=== PATIENT | male | born 1935 | race Caucasian/White ===

== ENCOUNTER → 2020-04-01 09:12 | Outpatient (BNVA) | payer MEDICARE, OTHER, SELFPAY | PROVIDERS: Family Provider Internal Medicine; PCP Internal Medicine; Visit Provider Internal Medicine Cardiovascular Disease | DX: E78.2 Mixed hyperlipidemia (principal) | CPT/HCPCS: 80061 ==

== ENCOUNTER 2022-04-24 19:14 | Emergency (ER) | payer MEDICARE, OTHER, SELFPAY ==
[2022-04-24 19:20] VITALS: BP 139/72; PULSE 70; RESP 18; TEMP 36.6; O2SAT 98; BMI 28.7
--- NOTE | 2022-04-24 23:01 | CTR_ITS ---
PROCEDURE INFORMATION: Exam: CT Head Without Contrast Exam date and time: 04/24/2022 11:18 PM Age: 87 years old Clinical indication: Dizziness TECHNIQUE: Imaging protocol: Computed tomography of the head without contrast. Radiation optimization: All CT scans at this facility use at least one of these dose optimization techniques: automated exposure control; mA and/or kV adjustment per patient size (includes targeted exams where dose is matched to clinical indication); or iterative reconstruction. COMPARISON: No relevant prior studies available. RADIATION DOSE METRICS: Total DLP (mGy-cm): 1035.98 FINDINGS: Brain: There is mild cerebral atrophy. No significant white matter disease. Negative for intracranial hemorrhage. Negative for intracranial mass. Negative for midline shift of the brain. Negative for acute brain ischemia. Cerebral ventricles: No ventriculomegaly. Paranasal sinuses: Visualized sinuses are unremarkable. No fluid levels. Mastoid air cells: Visualized mastoid air cells are well aerated. Bones/joints: Unremarkable. No acute fracture. Soft tissues: Unremarkable. CT/CT head wo con* [id number] IMPRESSION: Negative for acute intracranial abnormality.
--- NOTE | 2022-04-24 23:09 | ED_ITS ---
Documented by User: JENNIFER Spence 04/25/22 00:22 HPI - Dizziness General: Chief Complaint: Dizziness Stated Complaint: dizzy, vomitting Time Seen by Provider: 04/24/22 23:01 History of Present Illness: HPI Narrative: 87-year-old male patient comes in tonight with complaints of nausea and dizziness starting this evening. Patient reports no headache. Patient was able to ambulate with no deficit. Patient reports feeling really sick to his stomach with the episode. Patient does have some improvement since being in the ER. Patient has a history of ASHD, hypertension, hyperlipidemia, arrhythmia, diabetes, and anemia. Associated symptoms: Reports change in hearing and nausea; Denies chest pain Review of Systems Const: Denies: fever(s) ENMT: Reports: change in hearing; Denies: throat pain Card: Denies: chest pain Resp: Denies: dyspnea GI: Reports: nausea : Denies: flank pain Musc: Reports: neck pain Skin/Breast: Denies: rash Neuro: Reports: dizziness PFSH ED PFSH: Medical History Anemia Arrhythmia ASHD (arteriosclerotic heart disease) Bradycardia Diabetes Hyperlipidemia Hypertension Osteoarthritis Surgical History History of coronary artery stent placement History of hernia repair History of knee replacement Family History Mother CAD (coronary artery disease) Stroke Father CAD (coronary artery disease) Sister Cancer Family/Other Cancer Denies family history of Diabetes Clotting disorder Dementia Chronic kidney disease (CKD) Suicide Anesthesia complication Bleeding disorder Lung disease Social History Smoking and tobacco status: never smoked Alcohol intake: never Physical Exam Const: COMMON NORMALS: alert HENMT: COMMON NORMALS: normocephalic and Normal external nose present HEAD & SCALP: normocephalic NOSE: Normal external nose present THROAT: posterior oropharynx normal Neck/C-Spine: COMMON NORMALS: full ROM Resp: COMMON NORMALS: normal respiratory effort and clear to auscultation bilaterally AUSCULTATION: clear to auscultation bilaterally Cardio: COMMON NORMALS: regular rate and regular rhythm RATE: regular rate RHYTHM: regular rhythm GI: AUSCULTATION: Yes normoactive bowel sounds Extremity: COMMON NORMALS: normal to inspection and no pedal edema Neuro: SENSORIUM/ORIENTATION: Yes alert Skin: COMMON NORMALS: turgor normal GENERAL SKIN EXAM: turgor normal Course Vital Signs: Vital signs: Vital Signs Temperature 98.4 F 04/25/22 01:03 Pulse Rate 64 04/25/22 01:03 Respiratory Rate 17 04/25/22 01:03 Blood Pressure 135/70 04/25/22 01:03 Pulse Oximetry 97 04/25/22 01:03 Oxygen Delivery Me thod 04/24/22 19:20 MDM - Dizziness Medical Decision Making Patient came in tonight with onset of dizziness with nausea. Patient denies any vomiting. Patient denies a headache. On exam abdomen soft nontender. Bowel sounds are present. Lungs are clear to auscultation. Vital signs are normal. No focal deficits are noted. Differential diagnosis includes but not limited to leg arthritis, CVA, gastroenteritis, electrolyte disturbance. CBC noted a white count of 10,000, sodium was 133, creatinine was 1.1, CT of the head showed no acute intracranial bleeding or abnormality. EKG showed a sinus rhythm with sinus arrhythmia at 66 bpm. Believe patient probably has labor arthritis. Patient was given half a liter of saline, 10 mg of dexamethasone, and 4 mg of ondansetron. Patient was able to ambulate with minimal assistance. Reviewed recommendations for further treatment and follow-up with patient and family. Family and patient both reported understanding agreed to plan. Lab Data 04/24/22 23:08 04/24/22 23:[address] 04/24/22 23:01 IMPRESSION: Negative for acute intracranial abnormality. Laboratory Results WBC 10.4 10^3/uL (4.0-10.0) H 04/24/22 23:08 RBC 3.74 10^6/uL (4.1-5.3) L 04/24/22 23:08 Hgb 12.2 g/dL (11.7-16.6) 04/24/22 23:08 Hct 36.1 % (42.0-52.0) L 04/24/22 23:08 MCV 96.5 fl (80-94) H 04/24/22 23:08 MCH 32.6 pg (28.0-34.0) 12/03/22 23:08 MCHC 33.8 g/dL (30.0-36.0) 04/24/22 23:08 RDW 12.3 % (12.1-15.1) 04/24/22 23:08 Plt Count 156 10^3/cmm (130-400) 04/24/22 23:08 MPV 10.7 fL (7.4-10.4) H 04/24/22 23:08 Neut % (Auto) 83.7 % 04/24/22 23:08 Lymph % (Auto) 11.3 % 04/24/22 23:08 [place] % (Auto) 4.1 % 04/24/22 23:08 Eos % (Auto) 0.4 % 04/24/22 23:08 Baso % (Auto) 0.3 % 04/24/22 23:08 Neut # (Auto) 8.68 10^3/uL (1.8-7.7) H 04/24/22 23:08 Lymph # (Auto) 1.2 10^3/uL (0.8-4.8) 04/24/22 23:08 [place] # (Auto) 0.4 10^3/uL (0.2-0.9) 04/24/22 23:08 Eos # (Auto) 0.0 10^3/uL (0.0-0.8) 04/24/22 23:08 Baso # (Auto) 0.0 10^3/uL (0.0-0.1) 04/24/22 23:08 Nucleated RBC % (auto) 0 % 04/24/22 23:08 Nucleated RBCs # 0.0 /100WBC 04/24/22 23:08 Sodium 133 mmol/L (136-145) L 04/24/22 23:08 Potassium 3.9 mmol/L (3.5-5.1) 04/24/22 23:08 Chloride 103 mmol/L (98-107) 04/24/22 23:08 Carbon Dioxide 20 mmol/L (22-29) L 04/24/22 23:08 Anion Gap 13.9 (5-19) 04/24/22 23:08 BUN 30 mg/dL (8-23) H 04/24/22 23:08 Creatinine 1.1 mg/dL (0.7-1.2) 04/24/22 23:08 GFR Calculation Not Reportable 04/24/22 23:08 Glucose 233 mg/dL (65-115) H 04/24/22 23:08 Calculated Osmolality 290 mOsm/kg (285-295) 04/24/22 23:08 Calcium 9.5 mg/dL (8.5-10.5) 04/24/22 23:08 Total Bilirubin 0.5 mg/dL (0.15-1.2) 04/24/22 23:08 AST 19 U/L (0-40) 04/24/22 23:08 ALT 18 U/L (0-41) 04/24/22 23:08 Alkaline Phosphatase 62 U/L (40-130) 04/24/22 23:08 Total Protein 7.6 g/dL (6.6-8.7) 04/24/22 23:08 Albumin 4.2 g/dL (3.5-5.2) 04/24/22 23:08 Globulin 3.4 g/dL (1.3-4.6) 04/24/22 23:08 Discharge Plan Discharge Patient Disposition: Home Clinical Impression: Labyrinthine dysfunction Qualifiers: Laterality: unspecified laterality Qualified Code(s): H83.2X9 - Labyrinthine dysfunction, unspecified ear Condition: Stable Prescriptions: New meclizine 12.5 mg tablet 12.5 mg PO TID PRN (Reason: dizziness or nausea) Qty: 14 0RF No Action clopidogrel 75 mg tablet 75 mg PO DAILY Qty: 90 3RF amlodipine 10 mg tablet See Rx Instructions .ROUTE .COMPLEX Qty: 90 3RF Dose Instruction: Take 1 tablet by mouth once daily Rx Instructions: Take 1 tablet by mouth once daily isosorbide mononitrate 60 mg tablet extended release 24 hr 60 mg PO DAILY PRN (Reason: blood pressure) Qty: 90 3RF losartan 100 mg tablet See Rx Instructions .ROUTE .COMPLEX Qty: 90 3RF Dose Instruction: Take 1 tablet by mouth once daily Rx Instructions: Take 1 tablet by mouth once daily metoprolol succinate 100 mg tablet extended release 24 hr See Rx Instructions .ROUTE .COMPLEX Qty: 90 3RF Dose Instruction: Take 1 tablet by mouth once daily Rx Instructions: Take 1 tablet by mouth once daily nitroglycerin 0.4 mg tablet, sublingual 0.4 mg sublingual Q5M PRN (Reason: chest pain) Qty: 30 3RF Rx Instructions: until response; do not exceed 3 doses per episode rosuvastatin 10 mg tablet 10 mg PO DAILY Qty: 90 3RF chlorthalidone 25 mg tablet 25 mg PO DAILY Qty: 90 3RF potassium chloride 8 mEq tablet extended release 8 meq PO DAILY Qty: 90 3RF Discharge Orders: Discharge ED (Routine); Ordered 04/25/22 Ordered By: Chintan Almazan Referrals: Andrea Delarosa DO [Primary Care Provider] - Discharge Diet: Usual diet Discharge Activity: Increase activity as tolerated Patient Instructions: Dizziness (ED) Activity Restrictions/Additional Instructions: Home and rest. Activity as tolerated. Use meclizine tablets 1 every 8 hours as needed for nausea or dizziness. Use a walker or supportive device to help with ambulation to keep from falling. Follow-up with primary care in 3 days for recheck. Return to emergency department for worsening symptoms such as severe headache, inability to hold fluids down, fever greater than 100.4, or inability to walk even with assistance, or new concerns. Coding Level of Care Code ED Farrowing Worker for Chg Fwd Exam Comprehensive Documented by User: Delvin Velazco DO 04/25/22 16:52 HPI - Dizziness General: Chief Complaint: Dizziness Stated Complaint: dizzy, vomitting Time Seen by Provider: 04/24/22 23:01 [facility] ED PFSH: Medical History Anemia Arrhythmia ASHD (arteriosclerotic heart disease) Bradycardia Diabetes Hyperlipidemia Hypertension Osteoarthritis Surgical History History of coronary artery stent placement History of hernia repair History of knee replacement Family History Mother CAD (coronary artery disease) Stroke Father CAD (coronary artery disease) Sister Cancer Family/Other Cancer Denies family history of Diabetes Clotting disorder Dementia Chronic kidney disease (CKD) Suicide Anesthesia complication Bleeding disorder Lung disease Social History Smoking and tobacco status: never smoked Alcohol intake: never Course Vital Signs: Vital signs: Vital Signs Temperature 98.4 F 04/25/22 01:03 Pulse Rate 64 04/25/22 01:03 Respiratory Rate 17 04/25/22 01:03 Blood Pressure 135/70 04/25/22 01:03 Pulse Oximetry 97 04/25/22 01:03 Oxygen Delivery Me thod 04/24/22 19:20 MDM - Dizziness Medical Decision Making Patient came in tonight with onset of dizziness with nausea. Patient denies any vomiting. Patient denies a headache. On exam abdomen soft nontender. Bowel sounds are present. Lungs are clear to auscultation. Vital signs are normal. No focal deficits are noted. Differential diagnosis includes but not limited to leg arthritis, CVA, gastroenteritis, electrolyte disturbance. CBC noted a white count of 10,000, sodium was 133, creatinine was 1.1, CT of the head showed no acute intracranial bleeding or abnormality. EKG showed a sinus rhythm with sinus arrhythmia at 66 bpm. Believe patient probably has labor arthritis. Patient was given half a liter of saline, 10 mg of dexamethasone, and 4 mg of ondansetron. Patient was able to ambulate with minimal assistance. Reviewed recommendations for further treatment and follow-up with patient and family. Family and patient both reported understanding agreed to plan. This patient was originally seen by JENNIFER Cotton. I agree with his history, evaluation, and treatment. Lab Data 04/24/22 23:08 04/24/22 23:[address] 04/24/22 23:01 IMPRESSION: Negative for acute intracranial abnormality. Laboratory Results WBC 10.4 10^3/uL (4.0-10.0) H 04/24/22 23:08 RBC 3.74 10^6/uL (4.1-5.3) L 04/24/22 23:08 Hgb 12.2 g/dL (11.7-16.6) 04/24/22 23:08 Hct 36.1 % (42.0-52.0) L 04/24/22 23:08 MCV 96.5 fl (80-94) H 04/24/22 23:08 MCH 32.6 pg (28.0-34.0) 04/24/22 23:08 MCHC 33.8 g/dL (30.0-36.0) 04/24/22 23:08 RDW 12.3 % (12.1-15.1) 04/24/22 23:08 Plt Count 156 10^3/cmm (130-400) 04/24/22 23:08 MPV 10.7 fL (7.4-10.4) H 04/24/22 23:08 Neut % (Auto) 83.7 % 04/24/22 23:08 Lymph % (Auto) 11.3 % 04/24/22 23:08 [place] % (Auto) 4.1 % 04/24/22 23:08 Eos % (Auto) 0.4 % 04/24/22 23:08 Baso % (Auto) 0.3 % 04/24/22 23:08 Neut # (Auto) 8.68 10^3/uL (1.8-7.7) H 04/24/22 23:08 Lymph # (Auto) 1.2 10^3/uL (0.8-4.8) 04/24/22 23:08 [place] # (Auto) 0.4 10^3/uL (0.2-0.9) 04/24/22 23:08 Eos # (Auto) 0.0 10^3/uL (0.0-0.8) 04/24/22 23:08 Baso # (Auto) 0.0 10^3/uL (0.0-0.1) 04/24/22 23:08 Nucleated RBC % (auto) 0 % 04/24/22 23:08 Nucleated RBCs # 0.0 /100WBC 04/24/22 23:08 Sodium 133 mmol/L (136-145) L 04/24/22 23:08 Potassium 3.9 mmol/L (3.5-5.1) 04/24/22 23:08 Chloride 103 mmol/L (98-107) 04/24/22 23:08 Carbon Dioxide 20 mmol/L (22-29) L 04/24/22 23:08 Anion Gap 13.9 (5-19) 04/24/22 23:08 BUN 30 mg/dL (8-23) H 04/24/22 23:08 Creatinine 1.1 mg/dL (0.7-1.2) 04/24/22 23:08 GFR Calculation Not Reportable 04/24/22 23:08 Glucose 233 mg/dL (65-115) H 04/24/22 23:08 Calculated Osmolality 290 mOsm/kg (285-295) 04/24/22 23:08 Calcium 9.5 mg/dL (8.5-10.5) 04/24/22 23:08 Total Bilirubin 0.5 mg/dL (0.15-1.2) 04/24/22 23:08 AST 19 U/L (0-40) 04/24/22 23:08 ALT 18 U/L (0-41) 04/24/22 23:08 Alkaline Phosphatase 62 U/L (40-130) 04/24/22 23:08 Total Protein 7.6 g/dL (6.6-8.7) 04/24/22 23:08 Albumin 4.2 g/dL (3.5-5.2) 04/24/22 23:08 Globulin 3.4 g/dL (1.3-4.6) 04/24/22 23:08 Discharge Plan Discharge Patient Disposition: Home Clinical Impression: Labyrinthine dysfunction Qualifiers: Laterality: unspecified laterality Qualified Code(s): H83.2X9 - Labyrinthine dysfunction, unspecified ear Condition: Stable Prescriptions: New meclizine 12.5 mg tablet 12.5 mg PO TID PRN (Reason: dizziness or nausea) Qty: 14 0RF No Action clopidogrel 75 mg tablet 75 mg PO DAILY Qty: 90 3RF amlodipine 10 mg tablet See Rx Instructions .ROUTE .COMPLEX Qty: 90 3RF Dose Instruction: Take 1 tablet by mouth once daily Rx Instructions: Take 1 tablet by mouth once daily isosorbide mononitrate 60 mg tablet extended release 24 hr 60 mg PO DAILY PRN (Reason: blood pressure) Qty: 90 3RF losartan 100 mg tablet See Rx Instructions .ROUTE .COMPLEX Qty: 90 3RF Dose Instruction: Take 1 tablet by mouth once daily Rx Instructions: Take 1 tablet by mouth once daily metoprolol succinate 100 mg tablet extended release 24 hr See Rx Instructions .ROUTE .COMPLEX Qty: 90 3RF Dose Instruction: Take 1 tablet by mouth once daily Rx Instructions: Take 1 tablet by mouth once daily nitroglycerin 0.4 mg tablet, sublingual 0.4 mg sublingual Q5M PRN (Reason: chest pain) Qty: 30 3RF Rx Instructions: until response; do not exceed 3 doses per episode rosuvastatin 10 mg tablet 10 mg PO DAILY Qty: 90 3RF chlorthalidone 25 mg tablet 25 mg PO DAILY Qty: 90 3RF potassium chloride 8 mEq tablet extended release 8 meq PO DAILY Qty: 90 3RF Discharge Orders: Discharge ED (Routine); Ordered 04/25/22 Ordered By: Chintan Almazan Referrals: Andrea Delarosa DO [Primary Care Provider] - Discharge Diet: Usual diet Discharge Activity: Increase activity as tolerated Patient Instructions: Dizziness (ED) Activity Restrictions/Additional Instructions: Home and rest. Activity as tolerated. Use meclizine tablets 1 every 8 hours as needed for nausea or dizziness. Use a walker or supportive device to help with ambulation to keep from falling. Follow-up with primary care in 3 days for recheck. Return to emergency department for worsening symptoms such as severe headache, inability to hold fluids down, fever greater than 100.4, or inability to walk even with assistance, or new concerns. Coding Level of Care Code ED Farrowing Worker for Nasrin Fwd Exam Comprehensive
[2022-04-24] MEDS: ondansetron 2 mg/ML SDV 2 mL 4 MG IVP (23:26)
[2022-04-24] MEDS: sodium chloride 0.9% 500 ML 999 ML IV (23:26)
[2022-04-24] MEDS: dexamethasone 10 mg/mL INJ IVP (23:26)
[2022-04-24 23:32] LABS: Alanine Aminotransferase 18 U/L (0-41); Albumin Level 4.2 g/dL (3.5-5.2); Alkaline Phosphatase 62 U/L (40-130); Anion Gap 13.9 (5-19); Aspartate Amino Transferase 19 U/L (0-40); Basophils % 0.3 %; Blood Urea Nitrogen 30 mg/dL (8-23); Calcium 9.5 mg/dL (8.5-10.5); Carbon Dioxide 20 mmol/L (22-29); Chloride 103 mmol/L (98-107); Eosinophils % 0.4 %; Globulin 3.4 g/dL (1.3-4.6); Glucose 233 mg/dL (65-115); Hematocrit 36.1 % (42.0-52.0); Hemoglobin 12.2 g/dL (11.7-16.6); Lymphocytes # 1.2 10^3/uL (0.8-4.8); Lymphocytes % 11.3 %; Mean Corpuscular HGB Conc 33.8 g/dL (30.0-36.0); Mean Corpuscular Hemoglobin 32.6 pg (28.0-34.0); Mean Corpuscular Volume 96.5 fl (80-94); Mean Platelet Volume 10.7 fL (7.4-10.4); Monocytes # 0.4 10^3/uL (0.2-0.9); Monocytes % 4.1 %; Neutrophils # 8.68 10^3/uL (1.8-7.7); Neutrophils % 83.7 %; Nucleated Red Blood Cells % 0 %; Osmolality Calculated 290 mOsm/kg (285-295); Platelet Count 156 10^3/cmm (130-400); Potassium 3.9 mmol/L (3.5-5.1); Red Blood Count 3.74 10^6/uL (4.1-5.3); Red Cell Distribution Width 12.3 % (12.1-15.1); Sodium 133 mmol/L (136-145); Total Bilirubin 0.5 mg/dL (0.15-1.2); Total Protein 7.6 g/dL (6.6-8.7); White Blood Count 10.4 10^3/uL (4.0-10.0)
[2022-04-25 01:03] VITALS: BP 135/70; PULSE 64; RESP 17; TEMP 36.9; O2SAT 97
== END 2022-04-25 01:03 | disposition home or self-care (01) ==
PROVIDERS: Emergency Provider Nurse Practitioner Family; PCP Internal Medicine
DX: H83.2X9 Labyrinthine dysfunction, unspecified ear (principal)
CPT/HCPCS: 70450; 80053; 85025; 96361; 96374; 96375; 99285; J1100; J2405; J7040

== ENCOUNTER 2022-04-28 12:04 | Emergency (ER) | payer MEDICARE, OTHER, SELFPAY ==
[2022-04-28 12:42] VITALS: BP 152/74; PULSE 77; TEMP 36.8; O2SAT 98; BMI 29.0
--- NOTE | 2022-04-28 12:46 | ECG_ITS ---
[facility] Test Date: 2022-04-28 Pat Name: Rowdy Najera Department: Room: Gender: Male Tooling Specialist: : [id number] Requested By: Mckinley King Order Number: [id number] Jake MD: Pedro Mariano M.D. Measurements Intervals [place] Rate: 75 P: 88 ND: 207 QRS: -4 QRSD: 89 T: 27 QT: 376 QTc: 420 Interpretive Statements SINUS RHYTHM INTERPRETATION BASED ON A DEFAULT AGE OF 40 YEARS Compared to ECG 07/15/2017 16:30:13 No significant changes Electronically Signed On 04-28-2022 16:16:48 PRINCIPAL SECURITY ARCHITECT by Pedro Mariano M.D. [id number] f
[2022-04-28 13:27] LABS: Add Urine Microscopic? NO; Charge for UA Resulting for Rev
[2022-04-28 13:34] LABS: Bilirubin Urine Neg (Negative); Blood Urine Neg (Negative); Glucose Urine UA 2+ (Normal); Ketones Urine Negative (Negative); Leukocyte Esterase Urine Negative (Negative); Nitrate Urine Negative (Negative); Protein Urine Neg (Negative); Urine Appearance Clear (CLEAR); Urine Color Yellow (Yellow); Urobilinogen Urine Neg (Negative); pH Urine 5 (5-7)
[2022-04-28 14:24] VITALS: BP 137/73; PULSE 82; TEMP 37.2; O2SAT 97
[2022-04-28 14:31] LABS: Basophils % 0.2 %; Eosinophils # 0.1 10^3/uL (0.0-0.8); Eosinophils % 0.5 %; Hematocrit 37.1 % (42.0-52.0); Hemoglobin 12.5 g/dL (11.7-16.6); Lymphocytes % 7.6 %; Mean Corpuscular HGB Conc 33.7 g/dL (30.0-36.0); Mean Corpuscular Hemoglobin 32.8 pg (28.0-34.0); Mean Corpuscular Volume 97.4 fl (80-94); Mean Platelet Volume 10.5 fL (7.4-10.4); Monocytes # 0.9 10^3/uL (0.2-0.9); Monocytes % 7.3 %; Neutrophils # 10.62 10^3/uL (1.8-7.7); Neutrophils % 83.9 %; Nucleated Red Blood Cells % 0 %; Platelet Count 162 10^3/cmm (130-400); Red Blood Count 3.81 10^6/uL (4.1-5.3); Red Cell Distribution Width 12.3 % (12.1-15.1); White Blood Count 12.6 10^3/uL (4.0-10.0)
[2022-04-28 14:55] LABS: Troponin(5th) Baseline 24 ng/L (0-15)
[2022-04-28 15:05] LABS: Alanine Aminotransferase 29 U/L (0-41); Albumin Level 4.2 g/dL (3.5-5.2); Alkaline Phosphatase 60 U/L (40-130); Anion Gap 14.1 (5-19); Aspartate Amino Transferase 22 U/L (0-40); Blood Urea Nitrogen 22 mg/dL (8-23); Calcium 9.1 mg/dL (8.5-10.5); Carbon Dioxide 21 mmol/L (22-29); Chloride 106 mmol/L (98-107); Globulin 3.3 g/dL (1.3-4.6); Glucose 234 mg/dL (65-115); NT Pro B Type Natriuretic Pept 192 pg/mL (0-450); Osmolality Calculated 295 mOsm/kg (285-295); Potassium 4.1 mmol/L (3.5-5.1); Sodium 137 mmol/L (136-145); Total Protein 7.5 g/dL (6.6-8.7)
--- NOTE | 2022-04-28 15:28 | ECG_ITS ---
[facility] Test Date: 2022-04-28 Pat Name: Rowdy Najera Department: Room: Gender: Male Warehouse Picker: : [id number] Requested By: Mckniley King Order Number: [id number] Jake MD: Pedro Mariano M.D. Measurements Intervals [place] Rate: 75 P: 32 ND: 203 QRS: 12 QRSD: 88 T: 30 QT: 386 QTc: 431 Interpretive Statements SINUS RHYTHM Compared to ECG 04/28/2022 12:46:57 No significant changes Electronically Signed On 04-28-2022 16:19:12 BLUEPRINT ENGINEER by Pedro Mariano M.D. [email or web address] medical [email or web address] [id number]
[2022-04-28 15:49] VITALS: BP 152/74; PULSE 94; O2SAT 97
--- NOTE | 2022-04-28 16:44 | XRR_ITS ---
PROCEDURE INFORMATION: Exam: XR Chest Exam date and time: 04/28/2022 4:49 PM Age: 87 years old Clinical indication: Cough and dyspnea; Additional info: Dyspnea/cough TECHNIQUE: Imaging protocol: Radiologic exam of the chest. Views: 1 view. COMPARISON: CR XR chest 2V* [id number] 07/18/2017 9:15 PM FINDINGS: Lungs: Unremarkable. No consolidation. Pleural spaces: Unremarkable. No pleural effusion. No pneumothorax. Heart/Mediastinum: Unremarkable. No cardiomegaly. Bones/joints: Unremarkable. XR/XR chest 1V portable [id number] IMPRESSION: No acute findings.
--- NOTE | 2022-04-28 16:55 | W.ED.CHESTPA ---
HPI - Chest Pain General: Chief Complaint: Chest Pain Stated Complaint: Chest pains, N/V Time Seen by Provider: 04/28/22 16:39 Source: patient History of Present Illness: 87-year-old male presents emergency room complaining of intermittent nausea and vomiting some chest discomfort that radiates into his right shoulder. He has had generalized myalgias and some nonproductive cough. Subjective fever. No vomiting or diarrhea but has been very nauseous. In the emergency room he is a low-grade temp of 99 even. His cough has been nonproductive. MD complaint: chest discomfort Onset (ago): hour(s) Timing of current episode: episodic Onset: during rest Pain location: substernal Pain radiation: right shoulder Severity: mild Quality: aching and heaviness Relieving factors: nothing Exacerbating factors: nothing Associated symptoms: Reports dyspnea, fever(s) and nausea; Deny abdominal pain, diaphoresis, leg edema, palpitations, sense of impending doom, syncope or vomiting Treatment prior to arrival: none Review of Systems Const: Reports: fever(s); Denies: chills, fatigue, malaise or diaphoresis ENMT: Denies: throat pain, ear or mastoid pain, nasal discharge or nasal congestion Card: Reports: chest pain; Denies: palpitations, irregular heart rhythm, edema, swelling of feet/ankles or syncope Resp: Reports: dyspnea and non-productive cough; Denies: productive cough GI: Reports: nausea; Denies: abdominal pain or vomiting : Denies: flank pain, dysuria, urinary frequency or urinary urgency Musc: Denies: neck pain or back pain Skin/Breast: Denies: rash or pruritus PFS ED PFSH: Medical History Anemia Arrhythmia ASHD (arteriosclerotic heart disease) Bradycardia Diabetes Hyperlipidemia Hypertension Osteoarthritis Surgical History History of coronary artery stent placement History of hernia repair History of knee replacement Family History Mother CAD (coronary artery disease) Stroke Father CAD (coronary artery disease) Sister Cancer Family/Other Cancer Denies family history of Diabetes Clotting disorder Dementia Chronic kidney disease (CKD) Suicide Anesthesia complication Bleeding disorder Lung disease Social History Smoking and tobacco status: never smoked Alcohol intake: never Physical Exam Const: GENERAL APPEARANCE: cooperative and comfortable ORIENTATION/CONSCIOUSNESS: Yes awake, Yes oriented to person, Yes oriented to place and Yes oriented to time HENMT: COMMON NORMALS: normocephalic, atraumatic and hearing grossly normal bilaterally HEAD & SCALP: normocephalic and atraumatic Resp: COMMON NORMALS: normal respiratory effort, No retractions, No use of accessory muscles and clear to auscultation bilaterally AUSCULTATION: clear to auscultation bilaterally Cardio: COMMON NORMALS: regular rate, regular rhythm and No murmurs present (Cardio) RATE: regular rate RHYTHM: regular rhythm GI: COMMON NORMALS: Soft to palpation and No hepatosplenomegaly present AUSCULTATION: Yes normoactive bowel sounds PALPATION: Yes Soft to palpation, No Tenderness to palpation present (GI), No Guarding due to palpation present (GI) and Yes No hepatosplenomegaly present Extremity: COMMON NORMALS: normal to inspection, capillary refill normal, no clubbing, cyanosis or edema, no calf tenderness and no pedal edema Neuro: SENSORIUM/ORIENTATION: Yes oriented to person, Yes oriented to place and Yes oriented to time Skin: COMMON NORMALS: no rashes or lesions noted GENERAL SKIN EXAM: no rashes or lesions noted Course Vital Signs: Vital signs: Vital Signs Temperature 99.0 F 04/28/22 14:24 Pulse Rate 72 04/28/22 18:02 Respiratory Rate 15 04/28/22 18:02 Blood Pressure 128/64 04/28/22 18:02 Pulse Oximetry 96 04/28/22 18:02 Oxygen Delivery Me thod 04/28/22 14:24 MDM - Chest Pain Medical Decision Making EKG does not show any acute changes. Flulike illness for several days. I suspect he does have influenza he is outside the timeframe for use of antivirals. His flu swabs are negative he may have already converted back on his swabs. Serial troponins are negative. Noncardiac like chest discomfort related to his upper respiratory symptoms. Return if is further problems. Medical Records I reviewed the patient's medical records. Lab Data I reviewed the patient's lab results. 04/28/22 14:14 04/28/22 14:14 Radiology Impressions Chest X-Ray 04/28/22 16:44 IMPRESSION: No acute findings. Laboratory Results WBC 12.6 10^3/uL (4.0-10.0) H 04/28/22 14:14 RBC 3.81 10^6/uL (4.1-5.3) L 04/28/22 14:14 Hgb 12.5 g/dL (11.7-16.6) 04/28/22 14:14 Hct 37.1 % (42.0-52.0) L 04/28/22 14:14 MCV 97.4 fl (80-94) H 04/28/22 14:14 MCH 32.8 pg (28.0-34.0) 04/28/22 14:14 MCHC 33.7 g/dL (30.0-36.0) 04/28/22 14:14 RDW 12.3 % (12.1-15.1) 04/28/22 14:14 Plt Count 162 10^3/cmm (130-400) 04/28/22 14:14 MPV 10.5 fL (7.4-10.4) H 04/28/22 14:14 Neut % (Auto) 83.9 % 04/28/22 14:14 Lymph % (Auto) 7.6 % 04/28/22 14:14 [place] % (Auto) 7.3 % 04/28/22 14:14 Eos % (Auto) 0.5 % 04/28/22 14:14 Baso % (Auto) 0.2 % 04/28/22 14:14 Neut # (Auto) 10.62 10^3/uL (1.8-7.7) H 04/28/22 14:14 Lymph # (Auto) 1.0 10^3/uL (0.8-4.8) 04/28/22 14:14 [place] # (Auto) 0.9 10^3/uL (0.2-0.9) 04/28/22 14:14 Eos # (Auto) 0.1 10^3/uL (0.0-0.8) 04/28/22 14:14 Baso # (Auto) 0.0 10^3/uL (0.0-0.1) 04/28/22 14:14 Nucleated RBC % (auto) 0 % 04/28/22 14:14 Nucleated RBCs # 0.0 /100WBC 04/28/22 14:14 Sodium 137 mmol/L (136-145) 04/28/22 14:14 Potassium 4.1 mmol/L (3.5-5.1) 04/28/22 14:14 Chloride 106 mmol/L (98-107) 04/28/22 14:14 Carbon Dioxide 21 mmol/L (22-29) L 04/28/22 14:14 Anion Gap 14.1 (5-19) 04/28/22 14:14 BUN 22 mg/dL (8-23) 04/28/22 14:14 Creatinine 1.1 mg/dL (0.7-1.2) 04/28/22 14:14 GFR Calculation Not Reportable 04/28/22 14:14 Glucose 234 mg/dL (65-115) H 04/28/22 14:14 Calculated Osmolality 295 mOsm/kg (285-295) 04/28/22 14:14 Calcium 9.1 mg/dL (8.5-10.5) 04/28/22 14:14 Total Bilirubin 1.0 mg/dL (0.15-1.2) 04/28/22 14:14 AST 22 U/L (0-40) 04/28/22 14:14 ALT 29 U/L (0-41) 04/28/22 14:14 Alkaline Phosphatase 60 U/L (40-130) 04/28/22 14:14 Troponin T Baseline 24 ng/L (0-15) H 04/28/22 14:14 Troponin T 120 Minute 25.61 ng/L (0-15) H 04/28/22 16:21 Delta Troponin T 1.61 ABS# (0-10) 04/28/22 16:21 NT-Pro-B Natriuret Pep 192 pg/mL (0-450) 04/28/22 14:14 NT-Pro-B Natriuret Pep 193 pg/mL (0-450) 04/28/22 14:14 Total Protein 7.5 g/dL (6.6-8.7) 04/28/22 14:14 Albumin 4.2 g/dL (3.5-5.2) 04/28/22 14:14 Globulin 3.3 g/dL (1.3-4.6) 04/28/22 14:14 Urine Color Yellow (Yellow) 04/28/22 13:20 Urine Appearance Clear (CLEAR) 04/28/22 13:20 Urine pH 5 (5-7) 04/28/22 13:20 Ur Specific [place] 1.020 (1.005-1.030) 04/28/22 13:20 Urine Protein Neg (Negative) 04/28/22 13:20 Urine Glucose (UA) 2+ (Normal) H 04/28/22 13:20 Urine Ketones Negative (Negative) 04/28/22 13:20 Urine Blood Neg (Negative) 04/28/22 13:20 Urine Nitrate Negative (Negative) 04/28/22 13:20 Urine Bilirubin Neg (Negative) 04/28/22 13:20 Urine Urobilinogen Neg mg/dL (Negative) 04/28/22 13:20 Ur Leukocyte Esterase Negative (Negative) 04/28/22 13:20 Influenza Type A Ag negative (Negative) 04/28/22 17:34 Influenza Type B Ag negative (Negative) 04/28/22 17:34 Discharge Plan Discharge Patient Disposition: Home Clinical Impression: Atypical chest pain, Viral URI with cough Condition: Stable Prescriptions: No Action nitroglycerin 0.4 mg tablet, sublingual 0.4 mg sublingual Q5M PRN (Reason: chest pain) Qty: 30 3RF Rx Instructions: until response; do not exceed 3 doses per episode chlorthalidone 25 mg tablet 25 mg PO DAILY Qty: 90 3RF potassium chloride 8 mEq tablet extended release 8 meq PO DAILY Qty: 90 3RF triamcinolone acetonide 0.1 % ointment 1 applic TOPICAL BID PRN (Reason: Rash) ondansetron 4 mg tablet,disintegrating 4 mg PO Q4H PRN (Reason: Nausea) Prevagen 1 caplet PO DAILY metoprolol succinate 100 mg tablet extended release 24 hr 100 mg PO DAILY clopidogrel 75 mg tablet 75 mg PO QPM isosorbide mononitrate 60 mg tablet extended release 24 hr 60 mg PO DAILY amlodipine 10 mg tablet 10 mg PO DAILY losartan 100 mg tablet 100 mg PO QPM rosuvastatin 10 mg tablet 10 mg PO QPM Tylenol 325 mg Capsule 325 mg PO QID PRN (Reason: Pain) Discharge Orders: Discharge ED (Routine); Ordered 12/07/22 Ordered By: Mckinley Hunt Referrals: Andrea Delarosa DO [Primary Care Provider] - Discharge Diet: Usual diet Discharge Activity: Increase activity as tolerated Patient Instructions: Opioid Safety, Pain Management Activity Restrictions/Additional Instructions: You are seen for flulike symptoms in the emergency room. Your heart enzymes and EKGs were unremarkable. Based on your presentation is felt to most likely do have influenza given your report of the onset of symptoms you are not a candidate for Tamiflu. Recommend supportive cares Tylenol and ibuprofen [id number] cough cold remedies as appropriate for your symptoms. Coding Level of Care Code ED Lead Clinical Research Coordinator for Chg Fwd Exam Detailed
[2022-04-28 17:00] VITALS: BP 117/65; PULSE 79; RESP 16; O2SAT 99
--- NOTE | 2022-04-28 17:01 | PC.NURSE ---
PT PLACED ON CONTINUOUS NIBP, SPO2, AND CM
[2022-04-28 17:03] LABS: Troponin 5 2HR 25.61 ng/L (0-15)
[2022-04-28 17:05] LABS: Troponin 5 2HR Delta 1.61 ABS# (0-10)
[2022-04-28 17:35] LABS: NT Pro B Type Natriuretic Pept 193 pg/mL (0-450)
[2022-04-28 17:56] VITALS: BP 128/64; PULSE 74; RESP 21; O2SAT 96
[2022-04-28 18:02] VITALS: BP 128/64; PULSE 72; RESP 15; O2SAT 96
[2022-04-28 18:22] LABS: Influenza A by IFA negative (Negative); Influenza B by IFA negative (Negative)
== END 2022-04-28 18:03 | disposition home or self-care (01) ==
PROVIDERS: Emergency Provider Family Medicine; PCP Internal Medicine
DX: R07.89 Other chest pain (principal); J06.9 Acute upper respiratory infection, unspecified; Z79.02 Long term (current) use of antithrombotics/antiplatelets
CPT/HCPCS: 36415; 71045; 80053; 81003; 83880; 84484; 85025; 87804; 93005; 99285

== ENCOUNTER → 2022-05-19 10:00 | Outpatient (BNVA) | payer MEDICARE, OTHER, SELFPAY | PROVIDERS: PCP Internal Medicine; Visit Provider Internal Medicine Cardiovascular Disease | DX: I25.10 Atherosclerotic heart disease of native coronary artery without angina pectoris (principal); I10 Essential (primary) hypertension; E78.2 Mixed hyperlipidemia; I49.3 Ventricular premature depolarization; E11.65 Type 2 diabetes mellitus with hyperglycemia | CPT/HCPCS: 99214 ==

== ENCOUNTER → 2022-11-24 09:28 | Outpatient (BNVA) | payer MEDICARE, OTHER, SELFPAY | PROVIDERS: PCP Internal Medicine; Visit Provider Internal Medicine Cardiovascular Disease | DX: I25.10 Atherosclerotic heart disease of native coronary artery without angina pectoris (principal); I10 Essential (primary) hypertension; E78.2 Mixed hyperlipidemia; I49.3 Ventricular premature depolarization; E11.65 Type 2 diabetes mellitus with hyperglycemia; D50.8 Other iron deficiency anemias; R06.02 Shortness of breath; Z79.01 Long term (current) use of anticoagulants | CPT/HCPCS: 80048; 99214 ==

== ENCOUNTER 2023-02-24 03:20 | Observation (INO) | payer MEDICARE, OTHER, SELFPAY ==
[2023-02-24] VITALS (34 sets, daily range): BP systolic 105–175; BP diastolic 53–85; PULSE 69–96; RESP 16–33; TEMP 36.9–37.4; O2SAT 92–98; BMI 23.2
--- NOTE | 2023-02-24 03:24 | XRR_ITS ---
PROCEDURE INFORMATION: Exam: XR Chest Exam date and time: 02/24/2023 3:37 AM Age: 88 years old Clinical indication: Chest wall pain; Additional info: Cp TECHNIQUE: Imaging protocol: Radiologic exam of the chest. Views: 1 view. COMPARISON: CR XR chest 1V portable [id number] 04/28/2022 4:49 PM FINDINGS: Lungs: No focal airspace disease. Pleural spaces: Unremarkable. No pleural effusion. No pneumothorax. Heart/Mediastinum: Cardiomediastinal silhouette is within normal limits. Probable small hiatal hernia. Bones/joints: Unremarkable. XR/XR chest 1V portable [id number] IMPRESSION: No acute cardiopulmonary abnormality.
--- NOTE | 2023-02-24 03:24 | ECG_ITS ---
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 Measurements Intervals [place] Rate: 99 P: 36 ID: [id number] QRS: 18 QRSD: 85 T: 31 QT: 324 QTc: 417 Interpretive Statements SINUS RHYTHM Compared to ECG 04/28/2022 15:28:34 No significant changes Electronically Signed On 02-24-2023 15:55:16 CDT by Pedro Mariano M.D. [email or web address].[employer]/store/NU/[id number] f
--- NOTE | 2023-02-24 03:30 | ED_ITS ---
HPI - Chest Pain General: Chief Complaint: Chest Pain Stated Complaint: chest pain Time Seen by Provider: 02/24/23 03:21 Source: patient and EMS Mode of arrival: EMS Limitations: no limitations History of Present Illness: 88-year-old male states has been having chest pains almost some nausea vomiting and chills states been on for 4 to 5 hours he did have 1 episode of vomiting. States that the pain is since resolved ask him how to describe the pain he states he cannot history is kind of difficult from patient he denies any shortness of breath denies any cough he does have a history of stent many years ago. Associated symptoms: Reports nausea and vomiting; Deny abdominal pain, dyspnea or fever(s) Review of Systems Const: Denies: fever(s) or chills Eyes: Denies: eye discomfort ENMT: Denies: throat pain or dental pain Card: Reports: chest pain Resp: Denies: dyspnea GI: Reports: nausea and vomiting; Denies: abdominal pain or diarrhea : Denies: dysuria Musc: Denies: neck pain or back pain Skin/Breast: Denies: rash Neuro: Denies: headache(s) PFSH ED PFSH: Medical History Anemia Arrhythmia ASHD (arteriosclerotic heart disease) Bradycardia Diabetes Hyperlipidemia Hypertension Osteoarthritis Surgical History History of coronary artery stent placement History of hernia repair History of knee replacement Family History Mother CAD (coronary artery disease) Stroke Father CAD (coronary artery disease) Sister Cancer Family/Other Cancer Denies family history of Diabetes Clotting disorder Dementia Chronic kidney disease (CKD) Suicide Anesthesia complication Bleeding disorder Lung disease Social History Smoking and tobacco status: never smoked Alcohol intake: never Substance/Drug Use: never Physical Exam Const: COMMON NORMALS: patient oriented x3 HENMT: COMMON NORMALS: normocephalic and atraumatic HEAD & SCALP: normocephalic and atraumatic Eye: COMMON NORMALS: Equal, round and reactive pupils present and EOMs intact bilaterally PUPIL: Yes Equal, round and reactive pupils present Neck/C-Spine: COMMON NORMALS: full ROM and supple Chest: COMMONS NORMALS: normal inspection of the chest and normal palpation of entire chest wall Resp: COMMON NORMALS: normal respiratory effort, No retractions, No use of accessory muscles and clear to auscultation bilaterally AUSCULTATION: clear to auscultation bilaterally Cardio: COMMON NORMALS: regular rate, regular rhythm and No murmurs present (Cardio) RATE: regular rate RHYTHM: regular rhythm GI: COMMON NORMALS: Normal to inspection, nondistended, normoactive bowel sounds present, Soft to palpation, non-tender and no masses PALPATION: Yes Soft to palpation Extremity: COMMON NORMALS: normal to inspection and full ROM Neuro: COMMON NORMALS: patient oriented x3, moves all extremities and no focal motor deficits Psych: COMMON NORMALS: mental status grossly normal, Normal thought process present and cooperative THOUGHT PROCESS: Normal thought process present Skin: COMMON NORMALS: no rashes or lesions noted and no wounds GENERAL SKIN EXAM: no rashes or lesions noted Course Vital Signs: Vital signs: Vital Signs Temperature 98.4 F 02/24/23 16:00 Pulse Rate 69 02/24/23 16:46 Respiratory Rate 23 H 02/24/23 16:46 Blood Pressure 112/65 02/24/23 16:46 Pulse Oximetry 97 02/24/23 16:46 Oxygen Delivery Me thod Room Air 02/24/23 11:26 MDM - Chest Pain Medical Decision Making Patient presents here with chest pain he does have a positive delta troponin CT scan showed no acute findings I spoke to the hospitalist will admit at this time for ACS rule out Medical Records I reviewed the patient's medical records. Lab Data I reviewed the patient's lab results. 02/24/23 03:10 02/24/23 03:51 Radiology Impressions Chest X-Ray 02/24/23 03:24 IMPRESSION: No acute cardiopulmonary abnormality. Chest/Abdomen/Pelvis CT 02/24/23 03:58 IMPRESSION: 1. No pulmonary emboli identified to the level of the proximal segmental vessels. 2. There is mural thickening of the lower esophagus, which may reflect esophagitis, though endoscopy could be performed to exclude underlying neoplasm, particularly given some mildly prominent adjacent lymph nodes. IMPRESSION: No acute findings. Laboratory Results WBC 11.54 10^3/uL (3.29-11.43) H 02/24/23 03:10 RBC 3.78 10^6/uL (3.85-5.65) L 02/24/23 03:10 Hgb 12.40 g/dL (11.27-16.99) 02/24/23 03:10 Hct 36.3 % (37-53) L 02/24/23 03:10 MCV 96.0 fl (82-101) 02/24/23 03:10 MCH 32.8 pg (27-33) 02/24/23 03:10 MCHC 34.2 g/dL (30-55) 02/24/23 03:10 RDW 13.0 % (12.1-15.1) 02/24/23 03:10 Plt Count 200 10^3/cmm (157-399) 02/24/23 03:10 MPV 10.9 fL (7.4-10.4) H 02/24/23 03:10 Neut % (Auto) 79.6 % 02/24/23 03:10 Lymph % (Auto) 16.1 % 02/24/23 03:10 [place] % (Auto) 3.1 % 02/24/23 03:10 Eos % (Auto) 0.6 % 02/24/23 03:10 Baso % (Auto) 0.3 % 02/24/23 03:10 Neut # (Auto) 9.18 10^3/uL (1.8-7.7) H 02/24/23 03:10 Lymph # (Auto) 1.9 10^3/uL (0.8-4.8) 02/24/23 03:10 [place] # (Auto) 0.4 10^3/uL (0.2-0.9) 02/24/23 03:10 Eos # (Auto) 0.1 10^3/uL (0.0-0.8) 02/24/23 03:10 Baso # (Auto) 0.0 10^3/uL (0.0-0.1) 02/24/23 03:10 Nucleated RBC % (auto) 0 % 02/24/23 03:10 Nucleated RBCs # 0.0 /100WBC 02/24/23 03:10 PT 13.30 SECONDS (12.1-14.9) 02/24/23 03:51 INR 0.98 (0.8-1.2) 02/24/23 03:51 Sodium 138 mmol/L (136-145) 02/24/23 03:51 Potassium 4.0 mmol/L (3.5-5.1) 02/24/23 03:51 Chloride 108 mmol/L (98-107) H 02/24/23 03:51 Carbon Dioxide 18 mmol/L (22-29) L 02/24/23 03:51 Anion Gap 16.0 (5-19) 02/24/23 03:51 BUN 28 mg/dL (8-23) H 02/24/23 03:51 Creatinine 1.1 mg/dL (0.7-1.2) 02/24/23 03:51 GFR Calculation Not Reportable 02/24/23 03:51 Glucose 237 mg/dL (65-115) H 02/24/23 03:51 Estimat Average Glucose 157 02/24/23 03:51 Hemoglobin A1c 7.1 % (4.0-6.0) H 02/24/23 03:51 Calculated Osmolality 299 mOsm/kg (285-295) H 02/24/23 03:51 Calcium 8.4 mg/dL (8.5-10.5) L 02/24/23 03:51 Total Bilirubin 0.5 mg/dL (0.15-1.2) 02/24/23 03:51 AST 14 U/L (0-40) 02/24/23 03:51 ALT 14 U/L (0-41) 02/24/23 03:51 Alkaline Phosphatase 74 U/L (40-130) 02/24/23 03:51 Troponin T Baseline 23 ng/L (0-15) H 02/24/23 03:51 Troponin T 120 Minute 36.42 ng/L (0-15) H 02/24/23 05:20 Delta Troponin T 13.42 ABS# (0-10) H* 02/24/23 05:20 C-Reactive Protein 3.7 mg/L (0.0-4.9) 02/24/23 03:51 NT-Pro-B Natriuret Pep 426 pg/mL (0-450) 02/24/23 03:51 Total Protein 6.7 g/dL (6.6-8.7) 02/24/23 03:51 Albumin 4.2 g/dL (3.5-5.2) 02/24/23 03:51 Globulin 2.5 g/dL (1.3-4.6) 02/24/23 03:51 Triglycerides 118 mg/dL (0-150) 02/24/23 03:51 Cholesterol 131 mg/dL (0-200) 02/24/23 03:51 LDL Cholesterol, Calc 63 mg/dL (50-129) 02/24/23 03:51 HDL Cholesterol 44 mg/dL (60-100) L 02/24/23 03:51 LDL/HDL Ratio 1.43 RATIO (0.00-3.22) 02/24/23 03:51 Cholesterol/HDL Ratio 2.98 mg/dL (1.0-5.00) 02/24/23 03:51 Lipase 66 U/L (13-60) H 02/24/23 03:51 Procalcitonin 0.39 ng/mL (0-0.5) 02/24/23 03:51 TSH 1.88 uIU/mL (0.27-4.20) 02/24/23 03:51 SARS-CoV-2 Ag (Rapid) negative (Negative) 02/24/23 03:36 All radiology interpretation(s) finalized by discharge EKG Data EKG 1: I personally reviewed and interpreted this EKG as follows: EKG interpretation date: 02/24/23 EKG interpretation time: 03:21 Interpretation: nsr hr [address] or t wave abnormalities qrs 85 qtc 381 Discharge Plan Discharge Patient Disposition: Admitted As Inpatient Admit Provider: Cyaden Sam Clinical Impression: NSTEMI (non-ST elevated myocardial infarction) Condition: Stable Coding Level of Care Code ED Operator Specialist Communications for Chg Willem
[2023-02-24 03:33] LABS: Basophils % 0.3 %; Eosinophils # 0.1 10^3/uL (0.0-0.8); Eosinophils % 0.6 %; Hematocrit 36.3 % (37-53); Lymphocytes # 1.9 10^3/uL (0.8-4.8); Lymphocytes % 16.1 %; Mean Corpuscular HGB Conc 34.2 g/dL (30-55); Mean Corpuscular Hemoglobin 32.8 pg (27-33); Mean Platelet Volume 10.9 fL (7.4-10.4); Monocytes # 0.4 10^3/uL (0.2-0.9); Monocytes % 3.1 %; Neutrophils # 9.18 10^3/uL (1.8-7.7); Neutrophils % 79.6 %; Nucleated Red Blood Cells % 0 %; Platelet Count 200 10^3/cmm (157-399); Red Blood Count 3.78 10^6/uL (3.85-5.65); White Blood Count 11.54 10^3/uL (3.29-11.43)
--- NOTE | 2023-02-24 03:58 | CTR_ITS ---
PROCEDURE INFORMATION: Exam: CTA Chest With Contrast Exam date and time: 02/24/2023 4:43 AM Age: 88 years old Clinical indication: Chest wall pain; Patient HX: PT with vomiting and diarrhea since yesterday, woke up with some chest pain today; Additional info: Cp vomiting TECHNIQUE: Imaging protocol: Computed tomographic angiography of the chest with contrast. Exam focused on the arteries. 3D rendering (Not supervised by radiologist): MIP and/or 3D reconstructed images were created by the technologist. Radiation optimization: All CT scans at this facility use at least one of these dose optimization techniques: automated exposure control; mA and/or kV adjustment per patient size (includes targeted exams where dose is matched to clinical indication); or iterative reconstruction. Contrast material: OMNI 350; Contrast volume: 100 ml; Contrast route: INTRAVENOUS (IV); REPORTING DATA: Count of CT and Cardiac NM exams in prior 12 months: This patient has received [address] and 0 known cardiac nuclear medicine studies in the 12 months prior to the current study. COMPARISON: CR (CHEST, ) 02/24/2023 3:37 AM RADIATION DOSE METRICS: Total DLP (mGy-cm): 1037.9 FINDINGS: Pulmonary arteries: No pulmonary emboli identified to the level of the proximal segmental vessels. Aorta: Unremarkable. No aortic aneurysm. No aortic dissection. Lungs: There appears to be an area of mucus plugging in the right lower lobe. No focal airspace consolidation. Pleural spaces: Unremarkable. No pneumothorax. No pleural effusion. Heart: Unremarkable. No cardiomegaly. No pericardial effusion. Mediastinal space: There is mural thickening of the lower esophagus. Lymph nodes: There is some mildly prominent hilar lymphoid tissue. Mildly prominent paraesophageal lymph nodes are seen measuring up to 1 cm. Diaphragm: Small hiatal hernia. Bones/joints: Unremarkable. No acute fracture. Soft tissues: Unremarkable. PROCEDURE INFORMATION: Exam: CT Abdomen And Pelvis With Contrast Exam date and time: 02/24/2023 4:43 AM Age: 88 years old Clinical indication: Chest wall pain; Patient HX: PT with vomiting and diarrhea since yesterday, woke up with some chest pain today; Additional info: Cp vomiting TECHNIQUE: Imaging protocol: Computed tomography of the abdomen and pelvis with contrast. Radiation optimization: All CT scans at this facility use at least one of these dose optimization techniques: automated exposure control; mA and/or kV adjustment per patient size (includes targeted exams where dose is matched to clinical indication); or iterative reconstruction. Contrast material: OMNI 350; Contrast volume: 100 ml; Contrast route: INTRAVENOUS (IV); REPORTING DATA: Count of CT and Cardiac NM exams in prior 12 months: This patient has received [address] and 0 known cardiac nuclear medicine studies in the 12 months prior to the current study. COMPARISON: CR (CHEST, ) 02/24/2023 3:37 AM RADIATION DOSE METRICS: Total DLP (mGy-cm): 1037.9 FINDINGS: Liver: Multiple hepatic cysts are seen. Gallbladder and bile ducts: Cholelithiasis. Pancreas: Normal. No ductal dilation. Spleen: Normal. No splenomegaly. Adrenal glands: Normal. No mass. Kidneys and ureters: Subcentimeter low-density lesions in the kidneys are too small to characterize, though statistically benign. Stomach and bowel: Unremarkable. No obstruction. No mucosal thickening. Appendix: No evidence of appendicitis. Intraperitoneal space: Unremarkable. No free air. No significant fluid collection. Vasculature: Moderate burden of atherosclerotic plaque in the abdominal aorta and branch vessels. No aneurysm. Lymph nodes: Unremarkable. No enlarged lymph nodes. Urinary bladder: Unremarkable as visualized. Reproductive: Prostatomegaly. Bones/joints: Bilateral L5 pars defects with grade 1 anterolisthesis of L5 on S1. Multilevel degenerative disc disease in the lumbar spine. Soft tissues: Unremarkable. CT/CT angio chest w abd pel w con IMPRESSION: 1. No pulmonary emboli identified to the level of the proximal segmental vessels. 2. There is mural thickening of the lower esophagus, which may reflect esophagitis, though endoscopy could be performed to exclude underlying neoplasm, particularly given some mildly prominent adjacent lymph nodes. IMPRESSION: No acute findings.
[2023-02-24 04:02] LABS: SARS Covid-2 Antigen negative (Negative)
[2023-02-24] MEDS: ondansetron 2 mg/ML SDV 2 mL 4 MG IVP (04:08)
[2023-02-24 04:23] LABS: Troponin(5th) Baseline 23 ng/L (0-15)
[2023-02-24 04:24] LABS: Alanine Aminotransferase 14 U/L (0-41); Albumin Level 4.2 g/dL (3.5-5.2); Alkaline Phosphatase 74 U/L (40-130); Aspartate Amino Transferase 14 U/L (0-40); Blood Urea Nitrogen 28 mg/dL (8-23); Calcium 8.4 mg/dL (8.5-10.5); Carbon Dioxide 18 mmol/L (22-29); Chloride 108 mmol/L (98-107); Globulin 2.5 g/dL (1.3-4.6); Glucose 237 mg/dL (65-115); Lipase 66 U/L (13-60); Osmolality Calculated 299 mOsm/kg (285-295); Sodium 138 mmol/L (136-145); Total Bilirubin 0.5 mg/dL (0.15-1.2); Total Protein 6.7 g/dL (6.6-8.7)
[2023-02-24] MEDS: sodium chloride 0.9% 1,000 ML 999 ML IV (05:13)
[2023-02-24] MEDS: acetaminophen 325 mg Tablet 650 MG PO (05:13)
--- NOTE | 2023-02-24 05:23 | ECG_ITS ---
[facility] Test Date: 2023-02-24 Pat Name: Rowdy Najera Department: Room: Gender: Male Talent Associate: : [id number] Requested By: Demetrio Deleon Order Number: [id number] Jake MD: Kirsten Damon M.D. Measurements Intervals [place] Rate: 91 P: 66 [place]: 169 QRS: 20 QRSD: 94 T: 29 QT: 344 QTc: 424 Interpretive Statements SINUS RHYTHM WITH OCCASIONAL SUPRAVENTRICULAR PREMATURE COMPLEXES Compared to ECG 02/24/2023 03:21:57 No significant changes Electronically Signed On 02-24-2023 13:02:11 CDT by Kirsten Damon M.D. [email or web address] Roads/store/[id number]
[2023-02-24 05:39] LABS: Troponin 5 2HR 36.42 ng/L (0-15)
[2023-02-24 05:40] LABS: Troponin 5 2HR Delta 13.42 ABS# (0-10)
[2023-02-24] MEDS: enoxaparin 60 mg/0.6 mL Syringe SUBCUT (05:51)
[2023-02-24 06:03] LABS: Add Urine Microscopic? NO; Charge for UA Resulting for Rev
[2023-02-24 06:09] LABS: Bilirubin Urine Neg (Negative); Blood Urine Neg (Negative); Glucose Urine UA 4+ (Normal); Ketones Urine Negative (Negative); Leukocyte Esterase Urine Negative (Negative); Nitrate Urine Negative (Negative); Protein Urine Neg (Negative); Specific Gravity, Urine 1.015 (1.005-1.030); Urine Appearance Clear (CLEAR); Urine Color Yellow (Yellow); Urobilinogen Urine Neg (Negative); pH Urine 5 (5-7)
--- NOTE | 2023-02-24 06:16 | P.HP_ITS ---
Providers/Chief Complaint Admitting Physician: Cayden Sam MD Primary Care Provider: Andrea Delarosa DO Chief Complaint: chest pain History of Present Illness Rowdy Najera is a 88 year old male with a past medical history of CAD status post 6 stents, 2 stents to the RCA, 1 stent to the left circumflex, 2 stents to the LAD who presents to [facility] for chest pain, shortness of breath, nausea, dizziness. Patient tells me that he woke up this morning, experiencing nausea, followed by chest pain which was a pressure-like sensation on his chest, lasting a few minutes, nonradiating associate with shortness of breath, dizziness. He also reports cough, chills, no fevers, he has been vaccinated for COVID, no known exposure to COVID, work-up in the emergency room showed a troponin 120-minute 36.42 delta of 13, EKG no acute ST-T wave changes, currently chest pain-free Review of Systems Const: Reports: chills; Denies: fever(s) Card: Reports: chest pain Resp: Reports: dyspnea Medications/Allergies Home Medications Medication Instructions Recorded Confirmed Last Taken Type Prevagen 1 caplet PO DAILY 04/28/22 04/28/22 04/28/22 History triamcinolone acetonide 0.1 % 1 applic topical BID PRN Rash 04/28/22 04/28/22 Unknown History topical ointment hydrocodone 5 mg-acetaminophen 325 1 tab PO TID PRN pain 05/19/22 Unknown History mg tablet amlodipine 10 mg tablet 10 mg PO DAILY #90 tabs 06/21/22 Unknown Rx rosuvastatin 10 mg tablet 10 mg PO QPM #90 tabs 09/20/22 Unknown Rx metoprolol succinate 100 mg 100 mg PO DAILY #90 tabs 09/27/22 Unknown Rx tablet,extended release 24 hr clopidogrel 75 mg tablet (Plavix) 75 mg PO DAILY 30 days #90 tabs 11/24/22 11/24/22 Unknown Rx isosorbide mononitrate 120 mg See Rx Instructions .Route 12/09/22 Unknown Rx tablet,extended release 24 hr .COMPLEX #90 tabs potassium chloride 8 mEq 8 meq PO DAILY #90 tabs 01/05/23 Unknown Rx tablet,extended release nitroglycerin 0.4 mg sublingual 0.4 mg sublingual Q5M PRN chest 02/14/23 Unknown Rx tablet pain #30 tabs Allergies Allergy/AdvReac Type Severity Reaction Status Date / Time metformin Allergy severe Verified 02/24/23 03:28 diarrhea PFSH Acute PFSH: Medical History Anemia Arrhythmia ASHD (arteriosclerotic heart disease) Bradycardia Diabetes Hyperlipidemia Hypertension Osteoarthritis Surgical History History of coronary artery stent placement History of hernia repair History of knee replacement Family History Mother CAD (coronary artery disease) Stroke Father CAD (coronary artery disease) Sister Cancer Family/Other Cancer Denies family history of Diabetes Clotting disorder Dementia Chronic kidney disease (CKD) Suicide Anesthesia complication Bleeding disorder Lung disease Social History Smoking and tobacco status: never smoked Alcohol intake: never Substance/Drug Use: never Vitals/I&O/Wt Last Vital Signs Temp 98.9 F 02/24/23 05:50 Pulse 72 02/24/23 06:05 Resp 18 02/24/23 06:05 BP 168/85 02/24/23 06:05 Pulse Ox 98 02/24/23 06:05 O2 Del Method Room Air 02/24/23 03:21 Weight last 48 hrs Weight 65.317 kg Physical Exam Const: COMMON NORMALS: no acute distress and patient oriented x3 HENMT: COMMON NORMALS: normocephalic HEAD & SCALP: normocephalic Eye: COMMON NORMALS: Equal, round and reactive pupils present and EOMs intact bilaterally Neck/C-Spine: COMMON NORMALS: no JVD Resp: COMMON NORMALS: normal respiratory effort, No retractions, No use of accessory muscles and clear to auscultation bilaterally AUSCULTATION: clear to auscultation bilaterally Cardio: COMMON NORMALS: regular rate, regular rhythm, S1 normal heart sound present and S2 normal heart sound present RATE: regular rate RHYTHM: regular rhythm HEART SOUNDS: S1 normal heart sound present and S2 normal heart sound present GI: COMMON NORMALS: Normal to inspection, nondistended, normoactive bowel sounds present, Soft to palpation and non-tender Extremity: COMMON NORMALS: no calf tenderness and no pedal edema Neuro: COMMON NORMALS: patient oriented x3, CN's II-XII intact bilaterally and moves all extremities Psych: COMMON NORMALS: mental status grossly normal Data 02/24/23 03:10 02/24/23 03:51 A&P Assessment and plan (1) ASHD (arteriosclerotic heart disease): (2) Hypertension: Qualifiers: Hypertension type: essential hypertension Qualified Code(s): I10 - Essential (primary) hypertension (3) Hyperlipidemia: Qualifiers: Hyperlipidemia type: mixed hyperlipidemia Qualified Code(s): E78.2 - Mixed hyperlipidemia (4) Diabetes: Qualifiers: Diabetes mellitus type: type 2 Diabetes mellitus rodent exterminator insulin use: without rodent exterminator use Diabetes mellitus complication status: with hyperglycemia Qualified Code(s): E11.65 - Type 2 diabetes mellitus with hyperglycemia (5) Anemia: Qualifiers: Anemia type: iron deficiency Iron deficiency anemia type: other iron deficiency Qualified Code(s): D50.8 - Other iron deficiency anemias (6) Chest pain: (7) NSTEMI (non-ST elevated myocardial infarction): Plan Chest pain/NSTEMI -Serial EKGs, serial troponins, telemetry monitoring -Cardiac echo -Monitor for chest pain -Aspirin 81 mg, continue statin, continue metoprolol -Took Plavix yesterday evening -Continue therapeutic Lovenox -We will monitor in the [facility] -Type 2 diabetes mellitus low-dose sliding scale, A1c -Based on troponin trend, will discuss with cardiology decide with coronary angiogram versus stress testing -Patient CT chest . ? There is mural thickening of the lower esophagus, which may reflect esophagitis, though endoscopy could be performed to exclude underlying neoplasm, particularly given some mildly prominent adjacent lymph nodes. -Patient is to follow-up with general surgery as outpatient for EGD -Full code -Lovenox for DVT prophylaxis Attestations Medical Necessity Statement*: Patient requires hospitalization, outpatient with observation, chest pain, NSTEMI Diagnoses ASHD (arteriosclerotic heart disease) I25.10 Hypertension I10 Hypertension type: essential hypertension Hyperlipidemia E78.2 Hyperlipidemia type: mixed hyperlipidemia Diabetes E11.65 Diabetes mellitus type: type 2 Diabetes mellitus rodent exterminator insulin use: without rodent exterminator use Diabetes mellitus complication status: with hyperglycemia Anemia D50.8 Anemia type: iron deficiency Iron deficiency anemia type: other iron deficiency Chest pain R07.9 NSTEMI (non-ST elevated myocardial infarction) I21.4
--- NOTE | 2023-02-24 06:22 | USCV_ITS ---
Rowdy Najera Age: 88 Gender: M : 1935 Exam Date: 02/24/2023 06:41 Ordering Phys: Cayden Sam MD Technologist: Godfrey Claros [place] [facility] [place]: nstemi BP: 166 / 76 HR: 85 Rhythm: Sinus Technical Quality: Adequate MEASUREMENTS (Male / Female) Normal Values 2D ECHO LV Diastolic Diameter PLAX 4.5 cm 4.2 - 5.9 / 3.9 - 5.3 cm LV Systolic Diameter PLAX 2.8 cm IVS Diastolic Thickness 1.1 cm 0.6 - 1.0 / 0.6 - 0.9 cm IVS Systolic Thickness 1.5 cm LVPW Diastolic Thickness 1.1 cm 0.6 - 1.0 / 0.6 - 0.9 cm LVPW Systolic Thickness 1.5 cm LVOT Diameter 2.1 cm LV Ejection Fraction 2D Teich 67.4 % LV Ejection Fraction MOD 2C 77.1 % LV Ejection Fraction 2C AL 77.6 % LA Diameter 4.3 cm M-MODE Aortic Annulus Diameter 4.1 cm LA Ao Ratio MM 1.3 MV E Point Septal Separation 1.6 cm DOPPLER AV Peak Velocity 140.0 cm/s LVOT Peak Velocity 128.0 cm/s AV Area Cont Eq vti 3.0 cm squared AV Area Cont Eq pk 3.0 cm squared MV Area PHT 3.1 cm squared Mitral E to A Ratio 0.8 MV E' Velocity 39.5 cm/s Mitral E to MV E' Ratio 15.0 Mitral E to LV E' Lateral Ratio 14.2 Mitral E to LV E' Septal Ratio 16.4 TR Peak Velocity 328.7 cm/s TR Peak Gradient 43.2 mmHg TV Peak E Velocity 100.0 cm/s Right Atrial Pressure 3.0 mmHg Pulmonary Artery Systolic Pressu 46.2 mmHg RV Acceleration Time 0.2 s FINDINGS Left Ventricle Normal left ventricular size, systolic function and wall thickness, with no regional wall motion abnormalities. Left ventricular ejection fraction is estimated at 75 %. Grade II diastolic dysfunction, moderately elevated filling pressures. Sigmoid septum. Right Ventricle Normal right ventricular size and systolic function. Right ventricular systolic pressure 40 mmHg. Right Atrium Normal right atrial size. Left Atrium Moderately increased left atrial size. Mitral Valve Mild mitral annular calcification. No mitral valve stenosis. Mild mitral valve regurgitation. Aortic Valve Mildly thickened trileaflet aortic valve. No aortic valve stenosis. No aortic valve regurgitation. Tricuspid Valve Structurally normal tricuspid valve. No tricuspid valve stenosis. Trace to mild tricuspid valve regurgitation. Pulmonic Valve Structurally normal pulmonic valve. No pulmonary valve stenosis. Pulmonic valve not well visualized. No pulmonary valve regurgitation. Pericardium No pericardial effusion. Aorta Normal size aortic root and proximal ascending aorta. IVC Normal IVC dimension with >50% respiratory change of the inferior vena cava. CONCLUSIONS 1. Normal left ventricular size, systolic function and wall thickness, with no regional wall motion abnormalities. Left ventricular ejection fraction is estimated at 75 %. Grade II diastolic dysfunction, moderately elevated filling pressures. Sigmoid septum. 2. Normal right ventricular size and systolic function. 3. Moderately increased left atrial size. 4. Mild mitral valve regurgitation. 5. No prior similar studies to compare. Kirsten Damon MD (Electronically Signed) Final Date: 24 February 2023 13:06 S
--- NOTE | 2023-02-24 06:32 | PC.NURSE ---
Patient refused SCDs at this time due to frequent need to get up to bathroom.
--- NOTE | 2023-02-24 06:45 | PC.NURSE ---
Patient reports having chronic diarrhea
[2023-02-24 06:58] LABS: INR 0.98 (0.8-1.2)
--- NOTE | 2023-02-24 06:58 | NMCV_ITS ---
NM krys perf SPECT r/s* [id number] Rowdy Najera Age: 88 Gender: M : 1935 Exam Date: 02/24/2023 06:58 Ordering Phys: Peace Ridley MD Technologist: CHARAN Mendez Exam Location: [facility] Indications: CHEST PAIN STRESS TEST [facility] IMAGE PROTOCOL Rest/Stress 1 Lexiscan Day Radiopharmaceutical Dose (mCi) Administration Site Administered by Rest: Tc-99m 10.7 IV CHARAN Mendez Sestamibi Stress:Tc-99m 32.5 IV CHARAN Sims Sestamibi Rest: 24-Feb-2023 60 Discovery 630 Stress: 24-Feb-2023 30 Discovery 630 0.4mg Lexiscan. Images obtained in supine and prone position. SPECT RESULTS Technical Quality: Excellent Raw Data Analysis: Normal Image Corrections: No attenuation or motion correction applied Summed Stress Score: 0 Summed Rest Score: 1 Summed Difference Score: 0 PERFUSION FINDINGS SPECT images demonstrate homogeneous tracer distribution throughout the myocardium. FUNCTIONAL RESULTS (calculated via Gated SPECT) Stress Image LV EF (%): 89 Stress EDV (mL):83 TID: 1.29 Stress ESV (mL):9 FUNCTIONAL FINDINGS: The left ventricle is normal in size. Transient Ischemia Dilatation of 1.29. There is normal left ventricular systolic function. The left ventricular ejection fraction is normal with a value of 89%. IMPRESSIONS 1. Myocardial perfusion imaging is normal. 2. Overall left ventricular systolic function is normal without regional wall motion abnormalities, LVEF=89%. 3. Transient Ischemia Dilatation increased at 1.29. This may represent subendocardial ischemia/multivessel CAD. Clinical correlation is advised. 4. No EKG changes with lexiscan infusion. Refer to separate report for details. Kirsten Damon MD (Electronically Signed) Final Date: 24 February 2023 12:13 S
[2023-02-24 07:19] LABS: NT Pro B Type Natriuretic Pept 426 pg/mL (0-450); Procalcitonin 0.39 ng/mL (0-0.5); Thyroid Stimulating Hormone 1.88 uIU/mL (0.27-4.20)
[2023-02-24 07:25] LABS: Estmated Average Glucose 157; Hemoglobin A1C 7.1 % (4.0-6.0)
[2023-02-24 07:30] LABS: C Reactive Protein 3.7 mg/L (0.0-4.9); Chol HDL Ratio 2.98 mg/dL (1.0-5.00); Cholesterol 131 mg/dL (0-200); HDL Cholesterol 44 mg/dL (60-100); LDL Cholesterol Calculated 63 mg/dL (50-129); LDL HDL Ratio 1.43 RATIO (0.00-3.22); Triglycerides 118 mg/dL (0-150)
--- NOTE | 2023-02-24 08:32 | PM.MISC ---
Miscellaneous Note Note: Patient stating that he feels fatigued and lethargic but chest pain is gone He is also complaining of GERD related symptoms Patient stating that he would like to change his CODE STATUS to DNR/DNI His nurse was also in the room when we discussed at the bedside S1, S2 variable Hemodynamic stable Currently on room air Fatigue lethargic Pleasant and cooperative We will touch base with cardiology for now I requested stress test, Consulted Dr. Damon Patient follows up with Dr. Lnaderos outpatient
[2023-02-24] MEDS: regadenoson 0.4 Mg/5 ml Syringe IVP (09:02)
--- NOTE | 2023-02-24 09:24 | ECG_ITS ---
[facility] Test Date: 2023-02-24 Pat Name: Rowdy Najera Department: Room: 107 Gender: Male Psych Rn: : 1935 Requested By: Demetrio Deleon Order Number: [id number] Jake MD: Kirsten Damon M.D. Measurements Intervals [place] Rate: 77 P: 83 MS: 195 QRS: 50 QRSD: 90 T: 50 QT: 394 QTc: 447 Interpretive Statements SINUS RHYTHM WITH OCCASIONAL SUPRAVENTRICULAR PREMATURE COMPLEXES Compared to ECG 02/24/2023 05:23:57 No significant changes Electronically Signed On 02-24-2023 13:02:24 CDT by Kirsten Damon M.D. [email or web address]
[2023-02-24 10:44] LABS: Troponin 5 6HR 27.54 ng/L (0-15)
[2023-02-24] MEDS: aspirin 81 mg EC Tablet PO (10:45)
[2023-02-24] MEDS: isosorbide mononitrate ER 60 mg Tablet 120 MG PO (10:45)
[2023-02-24] MEDS: amlodipine 10 mg Tablet PO (10:45)
[2023-02-24 10:46] LABS: Troponin 5 6HR Delta 4.54 ng/L (0-12)
[2023-02-24] MEDS: metoprolol succinate ER (24 HR) 100 mg Tablet PO (10:46)
[2023-02-24] MEDS: pantoprazole 40 mg SDV IVP (10:46)
[2023-02-24] MEDS: chlorthalidone 25 mg Tablet PO (10:46)
[2023-02-24 10:57] LABS: Glucose Point of Care 234 mg/dL (70-110)
[2023-02-24] MEDS: insulin lispro 100 unit/1 mL SUBCUT (12:45)
--- NOTE | 2023-02-24 12:57 | PM.CONSULT ---
Providers/Reason For Consult Consulting Physician/Specialty*: Dr. Damon, Cardiology Reason for Consult*: Unstrable angina Attending Physician: Cayden Sam MD Primary Care Provider: Andrea Delarosa DO History of Present Illness History of Present Illness Rowdy Najera is a 88 year old male with PMHx of HTN, HLD, CAD s/p multiple stents, DM-2, GERD, PVC's/PAC's presented for evaluation of chest discomfort. He presented for chest pain described as pressure like that happened yesterday afternoon and lasted until he came to the ER. He has been having milder symptoms on and off. EKG did not show any significant ST-T wave chnages. Echo showed normal LV function and no RWMA. He has been CP free since arrival to the the ER. c/o ache on back and side of his head on and off. Troponins X3 did not show any significant delta (23-36-28). He is CP free at the time of exam. Family at bedside at the time of exam. Review of Systems General: Reports: 10 or more systems reviewed and unremarkable except in HPI and below Const: Reports: chills; Denies: fever(s) Card: Reports: chest pain Resp: Reports: dyspnea GI: Denies: nausea, vomiting, hematemesis, change in stool character, hematochezia or melena : Denies: urinary incontinence or hematuria Medications/Allergies Home Medications Medication Instructions Recorded Confirmed Last Taken Type Prevagen 1 caplet PO DAILY 04/28/22 02/24/23 02/23/23 08:00 History triamcinolone acetonide 0.1 % 1 applic topical BID PRN Rash 04/28/22 02/24/23 02/23/23 History topical ointment hydrocodone 5 mg-acetaminophen 325 1 tab PO TID PRN pain 05/19/22 02/24/23 Unknown History mg tablet amlodipine 10 mg tablet 10 mg PO DAILY #90 tabs 06/21/22 02/24/23 02/23/23 08:00 Rx rosuvastatin 10 mg tablet 10 mg PO QPM #90 tabs 09/20/22 02/24/23 02/23/23 19:00 Rx metoprolol succinate 100 mg 100 mg PO DAILY #90 tabs 09/27/22 02/24/23 02/23/23 08:00 Rx tablet,extended release 24 hr potassium chloride 8 mEq 8 meq PO DAILY #90 tabs 01/05/23 02/24/23 02/23/23 08:00 Rx tablet,extended release nitroglycerin 0.4 mg sublingual 0.4 mg sublingual Q5M PRN chest 02/14/23 02/24/23 02/23/23 Rx tablet pain #30 tabs chlorthalidone 25 mg tablet 25 mg PO DAILY 02/24/23 02/24/23 02/23/23 08:00 History clopidogrel 75 mg tablet (Plavix) 75 mg PO QPM 02/24/23 02/24/23 02/23/23 19:00 History diphenoxylate-atropine 2.5 1 tab PO BID PRN Diarrhea 02/24/23 02/24/23 Unknown History mg-0.025 mg tablet isosorbide mononitrate 120 mg 120 mg PO DAILY 02/24/23 02/24/23 02/23/23 08:00 History tablet,extended release 24 hr losartan 100 mg tablet 100 mg PO QPM 02/24/23 02/24/23 02/23/23 19:00 History pantoprazole 40 mg tablet,delayed 40 mg PO DAILY 02/24/23 02/24/23 02/23/23 08:00 History release Allergies Allergy/AdvReac Type Severity Reaction Status Date / Time metformin Allergy severe Verified 02/24/23 03:28 diarrhea Current Medications Generic Name Dose Route Start Last Admin Trade Name Freq PRN Reason Stop Dose Admin Amlodipine Besylate 10 mg 02/24/23 09:00 02/24/23 10:45 Amlodipine 10 Mg Tablet PO 10 mg DAILY FABIEN Administration Aspirin 81 mg 02/24/23 09:00 02/24/23 10:45 Aspirin 81 Mg Ec Tablet PO 81 mg DAILY FABIEN Administration Chlorthalidone 25 mg 02/24/23 09:00 02/24/23 10:46 Chlorthalidone 25 Mg Tablet PO 25 mg DAILY FABIEN Administration Insulin Human Lispro 0 unit 02/24/23 08:00 02/24/23 12:45 Insulin Lispro 100 Unit/1 Ml SUBCUT 6 unit TIDWM FABIEN Administration Protocol Isosorbide Mononitrate 120 mg 02/24/23 09:00 02/24/23 10:45 Isosorbide Mononitrate Er 60 Mg Tablet PO 120 mg DAILY FABIEN Administration Metoprolol Succinate 100 mg 02/24/23 09:00 02/24/23 10:46 Metoprolol Succinate Er (24 Hr) 100 Mg Tablet PO 100 mg DAILY FABIEN Administration Pantoprazole Sodium 40 mg 02/24/23 08:00 02/24/23 10:46 Pantoprazole 40 Mg Sdv IVP 40 mg Q24H FABIEN Administration PFSH Acute PFSH: Medical History Anemia Arrhythmia ASHD (arteriosclerotic heart disease) Bradycardia Diabetes Hyperlipidemia Hypertension Osteoarthritis Surgical History History of coronary artery stent placement History of hernia repair History of knee replacement Family History Mother CAD (coronary artery disease) Stroke Father CAD (coronary artery disease) Sister Cancer Family/Other Cancer Denies family history of Diabetes Clotting disorder Dementia Chronic kidney disease (CKD) Suicide Anesthesia complication Bleeding disorder Lung disease Social History Smoking and tobacco status: never smoked Alcohol intake: never Substance/Drug Use: never Vitals/I&O/Wt Last Vital Signs Temp 98.4 F 02/24/23 11:26 Pulse 73 02/24/23 11:26 Resp 20 H 02/24/23 11:26 BP 112/65 02/24/23 11:26 Pulse Ox 95 02/24/23 11:26 O2 Del Method Room Air 02/24/23 11:26 02/23/23 02/24/23 02/24/23 22:59 06:59 14:59 Intake Total 1720 / 1720 Balance 1720 / 1720 Weight last 48 hrs Weight 144 lb Physical Exam Const: COMMON NORMALS: no acute distress, patient oriented x3 and alert GENERAL APPEARANCE: cooperative, comfortable, well kempt and well hydrated HENMT: COMMON NORMALS: hearing grossly normal bilaterally, external ears normal and moist oral mucous membranes FACE & SINUS: normal facial exam EXTERNAL EAR: Yes external ears normal Eye: COMMON NORMALS: EOMs intact bilaterally and no scleral icterus GENERAL EYE: appearance normal, both eyes and all related structures ALIGNMENT: Yes alignment normal Neck/C-Spine: COMMON NORMALS: supple and no JVD GENERAL: Yes normal visual inspection CAROTIDS: Yes normal carotid upstroke Chest: COMMONS NORMALS: normal inspection of the chest and normal palpation of entire chest wall CHEST: Yes Symmetrical chest wall rise and No tenderness Resp: COMMON NORMALS: clear to auscultation bilaterally EFFORT & INSPECTION: No respiratory distress AUSCULTATION: clear to auscultation bilaterally, no crackles, no rales, no rhonchi and no wheezes Cardio: COMMON NORMALS: no JVD, regular rate, regular rhythm, S1 normal heart sound present, S2 normal heart sound present and Peripheral pulses 2+ throughout PALPATION: normal PMI RATE: regular rate RHYTHM: regular rhythm HEART SOUNDS: S1 normal heart sound present, S2 normal heart sound present, no gallops and no murmurs BRUITS: no carotid bruits PERIPHERAL PULSES: Peripheral pulses 2+ throughout, radial pulses present, posterior tibial pulses present and dorsalis pedis present GI: COMMON NORMALS: Soft to palpation AUSCULTATION: Yes normoactive bowel sounds PALPATION: Yes Soft to palpation, No Tenderness to palpation present (GI), No Guarding due to palpation present (GI) and No Rigid due to palpation Extremity: GENERAL: No cyanosis, No edema and No pallor Neuro: COMMON NORMALS: patient oriented x3, CN's II-XII intact bilaterally and no focal motor deficits SENSORIUM/ORIENTATION: Yes alert Psych: COMMON NORMALS: Normal thought process present and speech normal APPEARANCE: Yes well kempt SPEECH: Yes normal speech MOOD & AFFECT: Yes euthymic mood THOUGHT PROCESS: Normal thought process present THOUGHT CONTENT: Yes Normal thought content present Data 02/24/23 03:10 02/25/23 03:52 Other data: [facility] 10/2018 Diagnostic Cath Status: Elective Diagnostic Findings Coronary angiography shows right dominance. LM medium to large caliber vessel with no significant stenotic lesion. RCA: This is a medium caliber vessel which was found to have a 70-80% tubular narrowing proximally. The distal stented segment was found to be patent with the moderate in-stent narrowing. The PDA and the PLV branches were found to have mild diffuse disease. LAD: The left anterior descending artery is a medium caliber vessel which was found to be diffusely ectatic the proximal segment. Diffuse coronary calcification was noted in this area. Right after the first diagonal branch, there is a long stented segment, which was found to have high-grade in-stent stenosis. The mid left anterior descending artery was found to have mild to moderate diffuse disease. The distal artery has mild diffuse intimal irregularities. LCX is a medium caliber vessel with the diffuse ectasia proximally. The proximal circumflex artery was found to have a tubular narrowing of around 40%. The second obtuse marginal artery was found to have around 50-60% segmental narrowing, proximally. The AV groove branch was found to be a very small caliber vessel with a diffuse disease. PCI Status: Elective PCI LVEF Assessed: Yes Interventional Findings The LAD was approached first. Guide support was relatively poor. A guide liner was used, since without this lesion could not be reached. First, balloon angioplasty with a noncompliant balloon was employed. Lesion was subsequently stented with a stent within a stent with a good angiographic result. The right coronary artery was approached next. It was primarily stented without incident. No complications. Mid Left Anterior Descending Coronary Artery: 95% stenosis treated with MDT NC EUPHORA RX [id number] BALLOON and MDT R GARCIA 3.0X8 DARWIN. 0% residual stenosis, NORMAN: 3 flow. Proximal Right Coronary Artery: 85% stenosis treated with MDT R GARCIA 3.0X26 DARWIN. 0% residual stenosis, NORMAN: 3 flow. Successful intervention. Mid Left Anterior Descending Coronary Artery: 95% stenosis treated with MDT NC EUPHORA RX [id number] BALLOON and MDT R GARCIA 3.0X8 DARWIN. 0% residual stenosis, NORMAN: 3 flow. Proximal Right Coronary Artery: 85% stenosis treated with MDT R GARCIA 3.0X26 DARWIN. 0% residual stenosis, NORMAN: 3 flow. Successful intervention. Conclusions This is an 83-year-old white male with a history of coronary artery disease and previous PCI, presented with the complaints of chest pain. He had a myocardial perfusion imaging in March of last year. This was unremarkable. However he presented with increasing episodes of chest pain and worsening functional status. In view of his history and the risk factors, for further evaluation of his coronary status, a repeat cardiac catheterization was recommended. Patient underwent left heart catheterization with left and right coronary angiogram and LV angiogram today. The findings are as follows. There is severe coronary artery disease with two vessel disease. High-grade in-stent stenosis in the mid LAD and severe disease in the proximal RCA. Mild to moderate diffuse disease in the other vessels. Moderate in-stent narrowing in the distal RCA. Left ventricular was found to be hyperdynamic with an ejection fraction of around 80%. There was left internal hypertrophy with some mid cavity contraction. No significant mitral valve prolapse or mitral regurgitation. LVEDP of 15 mmHg. Mid Left Anterior Descending Coronary Artery was treated with Balloon and Drug Eluting Stent. Proximal Right Coronary Artery was successfully treated with Drug Eluting Stent. Mid Left Anterior Descending Coronary Artery was treated with Balloon and Drug Eluting Stent. Proximal Right Coronary Artery was successfully treated with Drug Eluting Stent. 03/2018 LMM #1.? Unremarkable myocardial perfusion imaging. ?#2.? LV wall motion analysis revealing no gross wall motion abnormalities. ?#3.? LV ejection fraction estimated to be 82%. ?#4.? LV volume within normal limits. A&P Assessment and plan (1) Chest pain: Stress test with slightly elevated TID but otherwise normal EKG and perfusion imaging. Normal LV function and no RWMA on echo. -On ISMN, metoporlol and amlodipine. -After discussion with the patient and family, we decided to proceed with medical management -will start on Ranexa 500 mg BID and based on response to it, will decide on further management. -continue current medications. (2) ASHD (arteriosclerotic heart disease): continue current meds (3) Hypertension: BP well controlled -continue current medications Qualifiers: Hypertension type: essential hypertension Qualified Code(s): I10 - Essential (primary) hypertension (4) Hyperlipidemia: Qualifiers: Hyperlipidemia type: mixed hyperlipidemia Qualified Code(s): E78.2 - Mixed hyperlipidemia (5) Diabetes: Qualifiers: Diabetes mellitus complication status: with hyperglycemia Diabetes mellitus intermission coordinator insulin use: without intermission coordinator use Diabetes mellitus type: type 2 Qualified Code(s): E11.65 - Type 2 diabetes mellitus with hyperglycemia Plan GERD PVC's/PAC's Thank you for allowing me to participate in patient's care. Please feel free to call with questions or concerns. Coding Level of Care Code 56079 Diagnoses Chest pain R07.9 ASHD (arteriosclerotic heart disease) I25.10 Hypertension I10 Hypertension type: essential hypertension Hyperlipidemia E78.2 Hyperlipidemia type: mixed hyperlipidemia Diabetes E11.65 Diabetes mellitus complication status: with hyperglycemia Diabetes mellitus intermission coordinator insulin use: without intermission coordinator use Diabetes mellitus type: type 2
[2023-02-24 17:11] LABS: Glucose Point of Care 136 mg/dL (70-110)
[2023-02-24] MEDS: losartan 50 mg Tablet 100 MG PO (17:25)
[2023-02-24] MEDS: clopidogrel 75 mg Tablet PO (17:25)
[2023-02-24] MEDS: ranolazine (12HR) 500 mg Tablet PO (17:26)
[2023-02-24] MEDS: atorvastatin 40 mg Tablet PO (17:26)
[2023-02-24 20:40] LABS: Glucose Point of Care 164 mg/dL (70-110)
[2023-02-25] VITALS: BP 101/54; PULSE 67; RESP 17; TEMP 36.8; O2SAT 97
[2023-02-25 04:00] VITALS: BP 115/58; PULSE 75; RESP 26; TEMP 37.1; O2SAT 98
[2023-02-25 04:35] LABS: Anion Gap 12.9 (5-19); Blood Urea Nitrogen 23 mg/dL (8-23); Calcium 8.3 mg/dL (8.5-10.5); Carbon Dioxide 21 mmol/L (22-29); Chloride 104 mmol/L (98-107); Glucose 165 mg/dL (65-115); Osmolality Calculated 285 mOsm/kg (285-295); Potassium 3.9 mmol/L (3.5-5.1); Sodium 134 mmol/L (136-145)
[2023-02-25 05:35] VITALS: PULSE 67
[2023-02-25 06:26] LABS: Glucose Point of Care 182 mg/dL (70-110)
[2023-02-25 08:00] VITALS: BP 105/62; PULSE 63; RESP 15; TEMP 37.1; O2SAT 96
[2023-02-25] MEDS: ranolazine (12HR) 500 mg Tablet PO (08:37)
[2023-02-25] MEDS: aspirin 81 mg EC Tablet PO (08:37)
[2023-02-25] MEDS: amlodipine 10 mg Tablet PO (08:38)
[2023-02-25] MEDS: chlorthalidone 25 mg Tablet PO (08:38)
[2023-02-25] MEDS: isosorbide mononitrate ER 60 mg Tablet 120 MG PO (08:38)
[2023-02-25] MEDS: pantoprazole 40 mg SDV IVP (08:38)
[2023-02-25] MEDS: metoprolol succinate ER (24 HR) 100 mg Tablet PO (08:38)
[2023-02-25] MEDS: insulin lispro 100 unit/1 mL SUBCUT (08:38)
--- NOTE | 2023-02-25 08:45 | PC.CHAP ---
Pastoral Care Encounter/Spiritual Assessment Type of Contact [] Declined delimber operator visit [] Patient/Family/Request visit [] Outpatient visit [] Follow-up visit [] Physician referral [] Code/Alert [x] Routine visit [] Staff referral [] Actively dying [] Patient sleeping [] Family support [] [] Out of room [] Palliative care [] [] Receiving care in room [] Pre-surgical visit [] Trauma [] Long length of stay [] ICU visit [] Other: Relational/Emotional Strength [x] Patient feels connected with others/family/visitors/staff [] Distress [] Loneliness/isolation [] Abandonment Spirituality of Patient [x] Person of Coty [] Attends Muslim of their [place]y [x] Believes in Prayer [] Reads Bible or Orthodoxy materials [] There are Spiritual issues to be addressed Lsw Interventions [x] Prayer [x] Active listening [] Non-anxious presence [x] Spiritual/emotional support [] Crisis/trauma care [] Spiritual counseling [] Bereavement support [] Provided bereavement packet [] Provided Bible/devotional materials [] Provided toy/stuffed animal, coloring book to patient or family member [] Provided Communion [] Anointing/[place] [] Salvation [x] Completed spiritual assessment [] Other: Impact on Illness or Injury [] Angry [] Fearful [] Anxious [] Often cries [] Exhaustion [] Unable to work [] Unable to attend moravian [] Unable to walk/stand [] Unable to read [] Unable to drive [] Unable to eat/drink [] Unable to sleep [] Unable to be with family [] Patient intubated [] Other: Summary Time spent with patient 5 min
--- NOTE | 2023-02-25 09:58 | P.DS_ITS ---
Discharge Providers Date of Admission: 02/24/23 05:56 Date of Discharge: February 25, 2023 Attending Provider at Admission: Cayden Sam MD Attending Provider at Discharge: Cayden Sam MD Primary Care Provider: Andrea Delarosa DO Diagnoses at Discharge Discharge Diagnosis (1) Chest pain: Status: Acute (2) ASHD (arteriosclerotic heart disease): Status: Acute (3) Hypertension: Status: Acute Qualifiers: Hypertension type: essential hypertension Qualified Code(s): I10 - Essential (primary) hypertension (4) Hyperlipidemia: Status: Acute Qualifiers: Hyperlipidemia type: mixed hyperlipidemia Qualified Code(s): E78.2 - Mixed hyperlipidemia (5) Diabetes: Status: Acute Qualifiers: Diabetes mellitus complication status: with hyperglycemia Diabetes mellitus longterm insulin use: without longterm use Diabetes mellitus type: type 2 Qualified Code(s): E11.65 - Type 2 diabetes mellitus with hyperglycemia Reason for Visit Reason for Visit: chest pain Hospital Course Hospital Course 88-year male who was admitted for management evaluation of unstable angina, troponins were not rising with significant ulcer, echo did not show new wall motion abnormality, he does have significant history of coronary disease follows up with Dr. Landeros outpatient, Dr. Rubio was consulted, stress test was done which showed elevated 3 times daily otherwise unremarkable, patient was managed medically, Ranexa was added for as antianginal option. Heart rate ranging around 66, blood pressure stable patient has not experienced chest pain during hospitalization. Patient change his CODE STATUS from full code to DNR/DNI. Of note, patient does seem to have GERD, lower esophagus inflammation/esophagitis for which I will add Protonix Physical Exam Narrative: Awake and alert Chest pain-free Euvolemic Pleasant Currently on room air Looks dehydrated S1, S2 Discharge Data Studies Completed and Pending Completed Studies During Hospitalization Category Date Time Status CTA chest CT abdomen pelvis [CT angio chest w abd pel w Cat Scan 02/24/23 03:58 Completed con] Stat XR chest 1V portable [id number] Stat Exams 02/24/23 03:24 Completed NM krys perf SPECT r/s* [id number] Routine Nuc Med 02/24/23 06:58 Completed CV. echo complete* [id number] Routine Ultrasound 02/24/23 06:22 Completed Pending at discharge Category Date Time Status Sestamibi Stress Test Request Routine Exams 02/25/23 06:00 Ordered Radiology Impressions Chest X-Ray 02/24/23 03:24 IMPRESSION: No acute cardiopulmonary abnormality. Chest/Abdomen/Pelvis CT 02/24/23 03:58 IMPRESSION: 1. No pulmonary emboli identified to the level of the proximal segmental vessels. 2. There is mural thickening of the lower esophagus, which may reflect esophagitis, though endoscopy could be performed to exclude underlying neoplasm, particularly given some mildly prominent adjacent lymph nodes. IMPRESSION: No acute findings. Laboratory Results WBC 11.54 10^3/uL (3.29-11.43) H 02/24/23 03:10 RBC 3.78 10^6/uL (3.85-5.65) L 02/24/23 03:10 Hgb 12.40 g/dL (11.27-16.99) 02/24/23 03:10 Hct 36.3 % (37-53) L 02/24/23 03:10 MCV 96.0 fl (82-101) 02/24/23 03:10 MCH 32.8 pg (27-33) 02/24/23 03:10 MCHC 34.2 g/dL (30-55) 02/24/23 03:10 RDW 13.0 % (12.1-15.1) 02/24/23 03:10 Plt Count 200 10^3/cmm (157-399) 02/24/23 03:10 MPV 10.9 fL (7.4-10.4) H 02/24/23 03:10 Neut % (Auto) 79.6 % 02/24/23 03:10 Lymph % (Auto) 16.1 % 02/24/23 03:10 [place] % (Auto) 3.1 % 02/24/23 03:10 Eos % (Auto) 0.6 % 02/24/23 03:10 Baso % (Auto) 0.3 % 02/24/23 03:10 Neut # (Auto) 9.18 10^3/uL (1.8-7.7) H 02/24/23 03:10 Lymph # (Auto) 1.9 10^3/uL (0.8-4.8) 02/24/23 03:10 [place] # (Auto) 0.4 10^3/uL (0.2-0.9) 02/24/23 03:10 Eos # (Auto) 0.1 10^3/uL (0.0-0.8) 02/24/23 03:10 Baso # (Auto) 0.0 10^3/uL (0.0-0.1) 02/24/23 03:10 Nucleated RBC % (auto) 0 % 02/24/23 03:10 Nucleated RBCs # 0.0 /100WBC 02/24/23 03:10 PT 13.30 SECONDS (12.1-14.9) 02/24/23 03:51 INR 0.98 (0.8-1.2) 02/24/23 03:51 Sodium 134 mmol/L (136-145) L 02/25/23 03:52 Potassium 3.9 mmol/L (3.5-5.1) 02/25/23 03:52 Chloride 104 mmol/L (98-107) 02/25/23 03:52 Carbon Dioxide 21 mmol/L (22-29) L 02/25/23 03:52 Anion Gap 12.9 (5-19) 02/25/23 03:52 BUN 23 mg/dL (8-23) 02/25/23 03:52 Creatinine 1.1 mg/dL (0.7-1.2) 02/25/23 03:52 GFR Calculation Not Reportable 02/25/23 03:52 Glucose 165 mg/dL (65-115) H 02/25/23 03:52 POC Glucose 182 mg/dL (70-110) H 02/25/23 06:20 Estimat Average Glucose 157 02/24/23 03:51 Hemoglobin A1c 7.1 % (4.0-6.0) H 02/24/23 03:51 Calculated Osmolality 285 mOsm/kg (285-295) 02/25/23 03:52 Calcium 8.3 mg/dL (8.5-10.5) L 02/25/23 03:52 Total Bilirubin 0.5 mg/dL (0.15-1.2) 02/24/23 03:51 AST 14 U/L (0-40) 02/24/23 03:51 ALT 14 U/L (0-41) 02/24/23 03:51 Alkaline Phosphatase 74 U/L (40-130) 02/24/23 03:51 Troponin T Baseline 23 ng/L (0-15) H 02/24/23 03:51 Troponin T 120 Minute 36.42 ng/L (0-15) H 02/24/23 05:20 Delta Troponin T 13.42 ABS# (0-10) H* 02/24/23 05:20 Troponin T Hi Sens 6Hr 27.54 ng/L (0-15) H 02/24/23 10:17 Troponin T Hi Sens 6Hr Delta 4.54 ng/L (0-12) 02/24/23 10:17 C-Reactive Protein 3.7 mg/L (0.0-4.9) 02/24/23 03:51 NT-Pro-B Natriuret Pep 426 pg/mL (0-450) 02/24/23 03:51 Total Protein 6.7 g/dL (6.6-8.7) 02/24/23 03:51 Albumin 4.2 g/dL (3.5-5.2) 02/24/23 03:51 Globulin 2.5 g/dL (1.3-4.6) 02/24/23 03:51 Triglycerides 118 mg/dL (0-150) 02/24/23 03:51 Cholesterol 131 mg/dL (0-200) 02/24/23 03:51 LDL Cholesterol, Calc 63 mg/dL (50-129) 02/24/23 03:51 HDL Cholesterol 44 mg/dL (60-100) L 02/24/23 03:51 LDL/HDL Ratio 1.43 RATIO (0.00-3.22) 02/24/23 03:51 Cholesterol/HDL Ratio 2.98 mg/dL (1.0-5.00) 02/24/23 03:51 Lipase 66 U/L (13-60) H 02/24/23 03:51 Procalcitonin 0.39 ng/mL (0-0.5) 02/24/23 03:51 TSH 1.88 uIU/mL (0.27-4.20) 02/24/23 03:51 Urine Color Yellow (Yellow) 02/24/23 06:00 Urine Appearance Clear (CLEAR) 02/24/23 06:00 Urine pH 5 (5-7) 02/24/23 06:00 Ur Specific [place] 1.015 (1.005-1.030) 02/24/23 06:00 Urine Protein Neg (Negative) 02/24/23 06:00 Urine Glucose (UA) 4+ (Normal) H 02/24/23 06:00 Urine Ketones Negative (Negative) 02/24/23 06:00 Urine Blood Neg (Negative) 02/24/23 06:00 Urine Nitrate Negative (Negative) 02/24/23 06:00 Urine Bilirubin Neg (Negative) 02/24/23 06:00 Urine Urobilinogen Neg mg/dL (Negative) 02/24/23 06:00 Ur Leukocyte Esterase Negative (Negative) 02/24/23 06:00 SARS-CoV-2 Ag (Rapid) negative (Negative) 02/24/23 03:36 Vitals Last Vital Signs Temp 98.7 F 02/25/23 08:00 Pulse 63 02/25/23 08:00 Resp 15 02/25/23 08:00 BP 105/62 02/25/23 08:00 Pulse Ox 96 02/25/23 08:00 O2 Del Method Room Air 02/25/23 08:00 Discharge Plan Discharge Patient Disposition: Home Condition: Stable Prescriptions: New aspirin 81 mg Tablet,Delayed Release (Dr/Ec) 81 mg PO DAILY Qty: 60 0RF ranolazine 500 mg Tablet Extended Release 12 Hr 500 mg PO BID Qty: 60 3RF Continued hydrocodone-acetaminophen 5-325 mg tablet 1 tab PO TID PRN (Reason: pain) rosuvastatin 10 mg tablet 10 mg PO QPM Qty: 90 3RF metoprolol succinate 100 mg tablet extended release 24 hr 100 mg PO DAILY Qty: 90 3RF potassium chloride 8 mEq tablet extended release 8 meq PO DAILY Qty: 90 3RF nitroglycerin 0.4 mg tablet, sublingual 0.4 mg sublingual Q5M PRN (Reason: chest pain) Qty: 30 3RF Rx Instructions: until response; do not exceed 3 doses per episode triamcinolone acetonide 0.1 % ointment 1 applic TOPICAL BID PRN (Reason: Rash) Prevagen 1 caplet PO DAILY diphenoxylate-atropine 2.5-0.025 mg tablet 1 tab PO BID PRN (Reason: Diarrhea) Plavix 75 mg Tablet 75 mg PO QPM isosorbide mononitrate 120 mg tablet extended release 24 hr 120 mg PO DAILY losartan 100 mg Tablet 100 mg PO QPM pantoprazole 40 mg tablet,delayed release (DR/EC) 40 mg PO DAILY Qty: 60 0RF Discontinued amlodipine 10 mg tablet 10 mg PO DAILY Qty: 90 3RF chlorthalidone 25 mg tablet 25 mg PO DAILY Discharge Orders: Discharge Order (Routine); Ordered 02/25/23 Ordered By: Peace Ridley Referrals: Albino Landeros MD [Physician] - 03/07/23 10:30 am Andrea Delarosa DO [Primary Care Provider] - 03/02/23 10:00 am Patient Instructions: Aspirin (By mouth) (Desiree Extra Strength, Desiree Aspirin [facility],..., Ranolazine (By mouth) (Ranexa, Aspruzyo), Angina (DC), Chest Pain (DC) Discharge Attestations Time Spent in Discharge Care*: greater than 30 min Quality Metrics Clinical Quality Measures [ No reported AMI, CVA or VTE this stay] Coding Level of Care Code Acute Code for Chg Fwd Diagnoses Chest pain R07.9 ASHD (arteriosclerotic heart disease) I25.10 Hypertension I10 Hypertension type: essential hypertension Hyperlipidemia E78.2 Hyperlipidemia type: mixed hyperlipidemia Diabetes E11.65 Diabetes mellitus complication status: with hyperglycemia Diabetes 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
--- NOTE | 2023-02-25 10:38 | PC.NURSE ---
Ambulated pt in hallways approx 750 feet without difficulty noted.
[2023-02-25 10:40] VITALS: BP 105/62; PULSE 63; RESP 15; TEMP 37.1; O2SAT 96
[2023-02-25 11:09] LABS: Glucose Point of Care 227 mg/dL (70-110)
--- NOTE | 2023-02-25 11:16 | P.PN_ITS ---
Subjective Subjective: doing well, denies any complaints. Medications: Reviewed: Yes Vitals/I&O/Wt Last Vital Signs Temp 98.7 F 02/25/23 10:40 Pulse 63 02/25/23 10:40 Resp 15 02/25/23 10:40 BP 105/62 02/25/23 10:40 Pulse Ox 96 02/25/23 10:40 O2 Del Method Room Air 02/25/23 08:00 02/24/23 02/25/23 02/25/23 22:59 06:59 14:59 Intake Total 660 / 2380 520 / 2900 480 / 480 Output Total / Balance 660 / 2380 518 / 2898 480 / 480 Weight last 48 hrs Weight 144 lb Physical Exam Const: COMMON NORMALS: no acute distress, patient oriented x3 and alert GENERAL APPEARANCE: cooperative, comfortable, well kempt and well hydrated HENMT: COMMON NORMALS: hearing grossly normal bilaterally, external ears normal and moist oral mucous membranes FACE & SINUS: normal facial exam EXTERNAL EAR: Yes external ears normal Eye: COMMON NORMALS: EOMs intact bilaterally and no scleral icterus GENERAL EYE: appearance normal, both eyes and all related structures ALIGNMENT: Yes alignment normal Neck/C-Spine: COMMON NORMALS: supple and no JVD GENERAL: Yes normal visual inspection CAROTIDS: Yes normal carotid upstroke Chest: COMMONS NORMALS: normal inspection of the chest and normal palpation of entire chest wall CHEST: Yes Symmetrical chest wall rise and No tenderness Resp: COMMON NORMALS: clear to auscultation bilaterally EFFORT & INSP ECTION: No respiratory distress AUSCULTATION: clear to auscultation bilaterally, no crackles, no rales, no rhonchi and no wheezes Cardio: COMMON NORMALS: no JVD, regular rate, regular rhythm, S1 normal heart sound present, S2 normal heart sound present and Peripheral pulses 2+ throughout PALPATION: normal PMI RATE: regular rate RHYTHM: regular rhythm HEART SOUNDS: S1 normal heart sound present, S2 normal heart sound present, no gallops and no murmurs BRUITS: no carotid bruits PERIPHERAL PULSES: Peripheral pulses 2+ throughout, radial pulses present, posterior tibial pulses present and dorsalis pedis present GI: COMMON NORMALS: Soft to palpation AUSCULTATION: Yes normoactive bowel sounds PALPATION: Yes Soft to palpation, No Tenderness to palpation present (GI), No Guarding due to palpation present (GI) and No Rigid due to palpation Extremity: GENERAL: No cyanosis, No edema and No pallor Neuro: COMMON NORMALS: patient oriented x3, CN's II-XII intact bilaterally and no focal motor deficits SENSORIUM/ORIENTATION: Yes alert Psych: COMMON NORMALS: Normal thought process present and speech normal APPEARANCE: Yes well kempt SPEECH: Yes normal speech MOOD & AFFECT: Yes euthymic mood THOUGHT PROCESS: Normal thought process present THOUGHT CONTENT: Yes Normal thought content present Data 02/24/23 03:10 02/25/23 03:52 A&P Assessment and plan (1) Chest pain: Stress test with slightly elevated TID but otherwise normal EKG and perfusion imaging. Normal LV function and no RWMA on echo. -On ISMN, metoporlol and amlodipine. -After discussion with the patient and family, we decided to proceed with medical management -cont. on Ranexa 500 mg BID and based on response to it, will decide on further management. -continue current medications. -f/u with [facility] in 1-2 weeks (2) ASHD (arteriosclerotic heart disease): continue current meds (3) Hypertension: BP well controlled -continue current medications Qualifiers: Hypertension type: essential hypertension Qualified Code(s): I10 - Esse ntial (primary) hypertension (4) Hyperlipidemia: Qualifiers: Hyperlipidemia type: mixed hyperlipidemia Qualified Code(s): E78.2 - Mixed hyperlipidemia (5) Diabetes: Qualifiers: Diabetes mellitus complication status: with hyperglycemia Diabetes mellitus custodial insulin use: without custodial use Diabetes mellitus type: type 2 Qualified Code(s): E11.65 - Type 2 diabetes mellitus with hyperglycemia Plan GERD PVC's/PAC's Thank you for allowing me to participate in patient's care. Please feel free to call with questions or concerns. Attestations Medical Necessity Statement*: stable to be discharged Coding Level of Care Code 49702 Diagnoses Chest pain R07.9 ASHD (arteriosclerotic heart disease) I25.10 Hypertension I10 Hypertension type: essential hypertension Hyperlipidemia E78.2 Hyperlipidemia type: mixed hyperlipidemia Diabetes E11.65 Diabetes mellitus complication status: with hyperglycemia Diabetes mellitus custodial insulin use: without long term acute care registered nurse use Diabetes mellitus type: type 2
--- NOTE | 2023-02-25 11:18 | PC.NURSE ---
Discharge Note Patient discharged to [home] via [w/c to POV] accompanied by [ and family]. Discharge instructions reviewed with patient and/or pharmaceutical service representative. Mobile pharmacy medications and/or prescriptions provided. Belongings/home medications returned.
== END 2023-02-25 11:10 | disposition home or self-care (01) ==
LOC: ER 03:31 → CSU 05:56
PROVIDERS: Internal Medicine; Admitting Provider Family Medicine; Emergency Provider Emergency Medicine; PCP Internal Medicine; Visit Provider Family Medicine
DX: R07.9 Chest pain, unspecified (principal); R06.02 Shortness of breath; R42 Dizziness and giddiness; I25.10 Atherosclerotic heart disease of native coronary artery without angina pectoris; I10 Essential (primary) hypertension; E78.2 Mixed hyperlipidemia; E11.65 Type 2 diabetes mellitus with hyperglycemia; Z95.5 Presence of coronary angioplasty implant and graft; K21.9 Gastro-esophageal reflux disease without esophagitis; M19.90 Unspecified osteoarthritis, unspecified site; I34.0 Nonrheumatic mitral (valve) insufficiency
CPT/HCPCS: 36415; 36416; 71045; 71275; 74177; 78452; 80048; 80053; 80061; 81003; 82962; 83036; 83690; 83880; 84145; 84443; 84484; 85025; 85610; 86140; 87426; 93005; 93017; 93306; 94664; 96361; 96372; 96374; 96375; 96376; 99285; A9500; C9113; G0378; J1650; J1815; J2405; J2785; J7030; Q9967

== ENCOUNTER → 2023-03-07 10:15 | Outpatient (BNVA) | payer MEDICARE, OTHER, SELFPAY | PROVIDERS: PCP Internal Medicine; Visit Provider Nurse Practitioner Family | DX: I25.10 Atherosclerotic heart disease of native coronary artery without angina pectoris (principal); I10 Essential (primary) hypertension | CPT/HCPCS: 99213 ==

== ENCOUNTER → 2023-06-02 09:35 | Outpatient (BNVA) | payer MEDICARE, OTHER, SELFPAY | PROVIDERS: PCP Internal Medicine; Visit Provider Internal Medicine Cardiovascular Disease | DX: I25.10 Atherosclerotic heart disease of native coronary artery without angina pectoris (principal); I49.3 Ventricular premature depolarization; I10 Essential (primary) hypertension; E78.2 Mixed hyperlipidemia | CPT/HCPCS: 99214 ==

== ENCOUNTER → 2023-11-30 14:00 | Outpatient (BNVA) | payer MEDICARE, OTHER, SELFPAY | PROVIDERS: PCP Internal Medicine; Visit Provider Internal Medicine Cardiovascular Disease | DX: I25.10 Atherosclerotic heart disease of native coronary artery without angina pectoris (principal); I49.3 Ventricular premature depolarization; E78.2 Mixed hyperlipidemia; I10 Essential (primary) hypertension; I25.2 Old myocardial infarction | CPT/HCPCS: 99214 ==